=== PATIENT | female | born 1940 | race Caucasian/White ===

== ENCOUNTER 2018-01-25 18:02 | Outpatient (CLI) | payer MEDICARE, MEDICAID | END 2018-01-25 18:03 | disposition critical access hospital (66) | LOC: EMS 18:02 | PROVIDERS: ATTEND Surgery | DX: R41.0 Disorientation, unspecified (principal) | CPT/HCPCS: A0425; A0429 ==

== ENCOUNTER 2018-01-25 18:21 | Emergency (ER) | payer MEDICARE, MEDICAID ==
[2018-01-25] MEDS ORDERED: LIDOCAINE 1% 2 ML VIAL SUBQ ONE (18:50)
[2018-01-25] MEDS ORDERED: cefTRIAXone 1 GM VIAL IM STA (18:50)
[2018-01-25] MEDS ORDERED: HALOPERIDOL 5 MG/ML VIAL IM STA ×2 (18:50→19:52)
--- NOTE | 2018-01-25 19:36 | ED Physician Documentation ---
History of Present Illness - Stated complaint Stated Complaint: UTI - Chief complaint Chief Complaint: General - History obtained from History obtained from: Patient, Family, EMS - History of Present Illness Pain level max: 0 Pain level now: 0 - Additonal information Additional information: Patient is a 77-year-old female who was sent over from [facility] because she would not take her antibiotics today. She was recently diagnosed with a UTI. Has dementia has been more altered than usual. This is thought to be related to the UTI. They sent her here for antibiotics. Review of Systems Unable to obtain: Dementia Constitutional: denies: Fever GI: denies: Vomiting PD PAST MEDICAL HISTORY - Past Medical History Cardiovascular: Coronary artery disease, [place], Atrial fibrillation Respiratory: COPD Neuro: Dementia, CVA - Past Surgical History Cardiovascular: Pacemaker - Present Medications Home Medications: Ambulatory Orders Medication Instructions Recorded Confirmed ALPRAZolam [Alprazolam] 0.25 mg PO 01/25/18 Apixaban [Eliquis] 5 mg PO 01/25/18 Aspirin 81 mg PO 01/25/18 Digoxin 125 mcg PO 01/25/18 Donepezil HCl [Donepezil HCl Odt] 10 mg PO 01/25/18 Levothyroxine Sodium 75 mcg PO 01/25/18 Memantine HCl 10 mg PO 01/25/18 Metoprolol Tartrate 50 mg PO 01/25/18 Quetiapine Fumarate [Seroquel] 50 mg PO 01/25/18 Sertraline HCl 100 mg PO 01/25/18 Simvastatin 20 mg PO 01/25/18 Trazodone HCl 50 mg PO 01/25/18 - Allergies Allergies/Adverse Reactions: Allergies Allergy/AdvReac Type Severity Reaction Status Date / Time No Known Drug Allergies Allergy Verified 01/25/18 18:30 - Social History Does the pt smoke?: No Smoking Status: Never smoker PD ED PE NORMAL - Vitals Vital signs reviewed: Yes - General General: No acute distress, Well developed/nourished, Other (Alert, oriented to person only) - HEENT HEENT: PERRL, Moist mucous membranes - Neck Neck: Supple, no meningeal sign - Cardiac Cardiac: RRR - Respiratory Respiratory: No respiratory distress, Clear bilaterally - Abdomen Abdomen: Soft, Non tender, Non distended - Back Back: No CVA TTP, No spinal TTP - Derm Derm: Warm and dry, No rash - Neuro Neuro: Other (alert) - Psych Psych: Other (Patient is confused, attempting to get up multiple times. She is not violent or combative however.) Results - Vitals Vitals: Oxygen O2 Source Room air PD MEDICAL DECISION MAKING - ED course Complexity details: considered differential, d/w family ED course: Patient is a 77-year-old demented female who was diagnosed with a UTI earlier today but will not take her antibiotics. She was given IM Rocephin along with IM Haldol and Ativan. This allowed her to calm down and rest in the emergency department. Her family is comfortable taking her back to [facility]. Contact information was given for [facility] and [facility] in case they would like a mental health evaluation at [facility]. Family counseled regarding signs and symptoms for which I believe and urgent re-evaluation would be necessary. Family with good understanding of and agreement to plan and is comfortable going home at this time This document was made in part using voice recognition software. While efforts are made to proofread this document, sound alike and grammatical errors may occur. Departure - Departure Disposition: 01 Home, Self Care Clinical Impression: UTI (urinary tract infection) Qualifiers: Urinary tract infection type: acute cystitis Hematuria presence: without hematuria Qualified Code(s): N30.00 - Acute cystitis without hematuria Dementia Qualifiers: Dementia type: unspecified type Dementia behavioral disturbance: with behavioral disturbance Qualified Code(s): F03.91 - Unspecified dementia with behavioral disturbance Condition: Good Instructions: ED UTI Cystitis Female Follow-Up: Dwaine Tafoya PA-C [Primary Care Provider] - Tomorrow Comments: Please continue Jodi's antibiotics tomorrow. You can call the [facility] for a mental health evaluation if you feel this is needed and they will come to your facility. Call her doctor to have her medications adjusted for her dementia. Discharge Date/Time: 01/25/18 20:29
[2018-01-25] MEDS ORDERED: LORazepam 2 MG/ML VIAL IM STA (19:51)
[2018-01-25 20:27] VITALS: BP 86/56
== END 2018-01-25 20:29 | disposition home or self-care (01) ==
LOC: ED 18:21
DX: N30.00 Acute cystitis without hematuria (principal); I25.10 Atherosclerotic heart disease of native coronary artery without angina pectoris; I25.2 Old myocardial infarction; F03.90 Unspecified dementia, unspecified severity, without behavioral disturbance, psychotic disturbance, mood disturbance, and anxiety; Z86.73 Personal history of transient ischemic attack (TIA), and cerebral infarction without residual deficits; Z95.0 Presence of cardiac pacemaker
CPT/HCPCS: 96372; 99283; J2060

== ENCOUNTER 2018-01-30 20:16 | Outpatient (CLI) | payer MEDICARE, MEDICAID | END 2018-01-30 20:17 | disposition critical access hospital (66) | LOC: EMS 20:16 | PROVIDERS: ATTEND Surgery | DX: R41.0 Disorientation, unspecified (principal); R46.89 Other symptoms and signs involving appearance and behavior | CPT/HCPCS: A0425; A0429 ==

== ENCOUNTER 2018-01-30 20:34 | Emergency (ER) | payer MEDICARE, MEDICAID ==
[2018-01-30 21:20] LABS: BASOPHILS # (AUTO) 0.1 10^3/uL (0.0-0.1); BASOPHILS % (AUTO) 1.2 %; EOSINOPHILS # (AUTO) 0.2 10^3/uL (0.0-0.7); EOSINOPHILS % (AUTO) 2.2 %; HGB - HEMOGLOBIN 11.9 g/dL (12.0-16.0); LYMPHOCYTES # (AUTO) 1.8 10^3/uL (1.5-3.5); LYMPHOCYTES % (AUTO) 24.6 %; MEAN CORPUSCULAR HGB CONC 34.8 g/dL (32.0-36.0); MEAN CORPUSCULAR VOLUME 97.5 fL (81.0-99.0); MEAN PLATELET VOLUME 8.6 fL (7.9-10.8); MONOCYTES # (AUTO) 0.9 10^3/uL (0.0-1.0); MONOCYTES % (AUTO) 12.1 %; NEUTROPHILS # (AUTO) 4.4 10^3/uL (1.5-6.6); NEUTROPHILS % (AUTO) 59.9 %; PLT - PLATELET COUNT 174 10^3/uL (130-450); RED CELL DISTRIBUTION WIDTH 14.8 % (12.0-15.0); WHITE BLOOD COUNT 7.4 x10^3/uL (4.8-10.8)
[2018-01-30 21:28] LABS: MUDS CUTOFF CONCENTRATIONS CUTOFF CONC BELOW:
[2018-01-30 21:32] LABS: BILIRUBIN,URINE NEGATIVE (NEGATIVE); GLUCOSE, URINE (UA) NEGATIVE (NEGATIVE); KETONES,URINE (UA) NEGATIVE (NEGATIVE); LEUKOCYTE ESTERASE, URINE NEGATIVE (NEGATIVE); NITRITE,URINE NEGATIVE (NEGATIVE); OCCULT BLOOD,URINE NEGATIVE (NEGATIVE); PH,URINE 5.5 PH (5.0-7.5); PROTEIN,URINE NEGATIVE (NEGATIVE); UROBILINOGEN,URINE 0.2 (NORMAL) E.U./dL (NORMAL)
[2018-01-30 21:34] LABS: CLARITY,URINE CLEAR (CLEAR)
[2018-01-30 21:35] LABS: ALBUMIN 3.7 g/dL (3.2-5.5); ALBUMIN/GLOBULIN RATIO 1.4 (1.0-2.2); ALKALINE PHOSPHATASE 79 IU/L (42-121); ALT ALANINE AMINOTRANSFERASE 25 IU/L (10-60); AST ASPARTATE AMINOTRANSFERASE 38 IU/L (10-42); BILIRUBIN,TOTAL 0.6 mg/dL (0.2-1.0); CALCIUM 8.5 mg/dL (8.5-10.3); CARBON DIOXIDE - CO2 24 mmol/L (21-32); CHLORIDE 108 mmol/L (101-111); CREATININE 0.9 mg/dL (0.4-1.0); GFR - MDRD 61 (>89); GLUCOSE 84 mg/dL (70-100); LIPASE 16 U/L (22-51); SALICYLATE < 6.0 mg/dL; SODIUM 139 mmol/L (135-145); TOTAL PROTEIN 6.4 g/dL (6.7-8.2)
[2018-01-30 21:36] LABS: ACETAMINOPHEN < 10 ug/mL (10-30)
--- NOTE | 2018-01-30 21:42 | ED Physician Documentation ---
PD HPI ALTERED MENTAL STATUS - Stated complaint Stated Complaint: AMS - Chief complaint Chief Complaint: MHE - History obtained from History obtained from: Patient, Caregiver - History of Present Illness Timing - onset: Today (again today with behavioral disturbance. Here several days ago with similar and had noted at that time that her Seroquel dose was only 1/2 of what it had been before coming here. So that was increased and patient doing better few days. Had labs and eval for infection and found to have possible UTI.) Timing - duration: Days (more restless today. Has been increasing some for the past week or so. Is at new [facility]ementia care place for past couple of weeks, [place] be near her daughter. Daughter had tried to care for her for few weeks at home but was not able to, so now in [facility].) Associated symptoms: No: Fever Basline status: Disoriented, [facility] facility (dementia care) Recently seen: Emergency Dept (5 days ago and had similar behavior. Also with possible UTI and was on abx that just finished today.) Review of Systems Unable to obtain: Dementia, Other (info from daughter) Constitutional: denies: Fever Nose: denies: Congestion Throat: denies: Sore throat Respiratory: denies: Cough GI: denies: Vomiting, Diarrhea Skin: reports: Rash (for a day or two, with redness and blotchy rash around ankles and legs mostly.) Musculoskeletal: denies: Extremity swelling Neurologic: denies: Focal weakness Immunocompromised: denies: Immunocompromised PD PAST MEDICAL HISTORY - Past Medical History Past Medical History: Yes Cardiovascular: Coronary artery disease, [place], Atrial fibrillation Respiratory: COPD Neuro: Dementia, CVA - Past Surgical History Past Surgical History: Yes Cardiovascular: Pacemaker - Present Medications Home Medications: Ambulatory Orders Medication Instructions Recorded Confirmed ALPRAZolam [Alprazolam] 0.25 mg PO 01/25/18 Apixaban [Eliquis] 5 mg PO 01/25/18 Aspirin 81 mg PO 01/25/18 Digoxin 125 mcg PO 01/25/18 Donepezil HCl [Donepezil HCl Odt] 10 mg PO 01/25/18 Levothyroxine Sodium 75 mcg PO 01/25/18 Memantine HCl 10 mg PO 01/25/18 Metoprolol Tartrate 50 mg PO 01/25/18 Quetiapine Fumarate [Seroquel] 50 mg PO 01/25/18 Sertraline HCl 100 mg PO 01/25/18 Simvastatin 20 mg PO 01/25/18 Trazodone HCl 50 mg PO 01/25/18 Haloperidol [Haldol] 2 mg PO BID #30 tablet 01/30/18 - Allergies Allergies/Adverse Reactions: Allergies Allergy/AdvReac Type Severity Reaction Status Date / Time No Known Drug Allergies Allergy Verified 01/30/18 20:40 - Social History Does the pt smoke?: No Smoking Status: Never smoker Does the pt drink ETOH?: No Does the pt have substance abuse?: No - POLST Patient has POLST: No PD ED PE NORMAL - Vitals Vital signs reviewed: Yes - General General: No acute distress (but is restless and wanting to get out of bed. Able to be directed by her daughter. ), Well developed/nourished - HEENT HEENT: Pharynx benign - Neck Neck: Supple, no meningeal sign, No adenopathy - Cardiac Cardiac: RRR, No murmur - Respiratory Respiratory: Clear bilaterally - Abdomen Abdomen: Soft, Non tender - Back Back: No CVA TTP - Derm Derm: Normal color, Warm and dry, Other (mild botchy red rash on legs and ankles c/w mild hives. 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 No : Alert and oriented X 3 (oriented to person, but is alert. ) Results - Vitals Vitals: Oxygen O2 Source Room air - Labs Labs: Laboratory Tests 01/30/18 01/30/18 01/30/18 20:58 21:15 21:15 WBC 7.4 RBC 3.50 L Hgb 11.9 L Hct 34.2 L MCV 97.5 MCH 34.0 H MCHC 34.8 RDW 14.8 Plt Count 174 MPV 8.6 Neut # 4.4 Lymph # 1.8 [place] # 0.9 Eos # 0.2 Baso # 0.1 Absolute Nucleated RBC 0.00 Nucleated RBC % 0.0 Sodium 139 Potassium 3.8 Chloride 108 Carbon Dioxide 24 Anion Gap 7.0 BUN Creatinine 0.9 Estimated GFR (MDRD) 61 L Glucose 84 POC Whole Bld Glucose 82 Calcium 8.5 Total Bilirubin 0.6 AST 38 ALT 25 Alkaline Phosphatase 79 Troponin I Total Protein 6.4 L Albumin 3.7 Globulin 2.7 Albumin/Globulin Ratio 1.4 Lipase 16 L Urine Color Urine Clarity Urine pH Ur Specific [place] Urine Protein Urine Glucose (UA) Urine Ketones Urine Occult Blood Urine Nitrite Urine Bilirubin Urine Urobilinogen Ur Leukocyte Esterase Ur Microscopic Review Urine Culture Comments Last Dose Date Last Dose Time Digoxin Salicylates < 6.0 Urine Opiates Screen Ur Oxycodone Screen Urine Methadone Screen Ur Propoxyphene Screen Acetaminophen < 10 L Ur Barbiturates Screen Ur Tricyclics Screen Ur Phencyclidine Scrn Ur Amphetamine Screen U Methamphetamines Scrn U Benzodiazepines Scrn Urine Cocaine Screen U Cannabinoids Screen 01/30/18 01/30/18 01/30/18 21:24 21:42 21:45 WBC RBC Hgb Hct MCV MCH MCHC RDW Plt Count MPV Neut # Lymph # [place] # Eos # Baso # Absolute Nucleated RBC Nucleated RBC % Sodium Potassium Chloride Carbon Dioxide Anion Gap BUN Creatinine Estimated GFR (MDRD) Glucose POC Whole Bld Glucose Calcium Total Bilirubin AST ALT Alkaline Phosphatase Troponin I < 0.04 Total Protein Albumin Globulin Albumin/Globulin Ratio Lipase Urine Color YELLOW Urine Clarity CLEAR Urine pH 5.5 Ur Specific [place] >=1.030 H Urine Protein NEGATIVE Urine Glucose (UA) NEGATIVE Urine Ketones NEGATIVE Urine Occult Blood NEGATIVE Urine Nitrite NEGATIVE Urine Bilirubin NEGATIVE Urine Urobilinogen 0.2 (NORMAL) Ur Leukocyte Esterase NEGATIVE Ur Microscopic Review NOT INDICATED Urine Culture Comments NOT INDICATED Last Dose Date UNKNOWN Last Dose Time UNKNOWN Digoxin 0.8 Salicylates Urine Opiates Screen NEGATIVE Ur Oxycodone Screen NEGATIVE Urine Methadone Screen NEGATIVE Ur Propoxyphene Screen NEGATIVE Acetaminophen Ur Barbiturates Screen NEGATIVE Ur Tricyclics Screen POSITIVE H Ur Phencyclidine Scrn NEGATIVE Ur Amphetamine Screen NEGATIVE U Methamphetamines Scrn NEGATIVE U Benzodiazepines Scrn POSITIVE H Urine Cocaine Screen NEGATIVE U Cannabinoids Screen NEGATIVE PD MEDICAL DECISION MAKING - ED course Complexity details: reviewed results (since she is done with her abx now, then no need to adjust for rash. ), re-evaluated patient (she is calmer with dose of Haldol and ativan, which had helped the recent visit as well. Daughter says that [facility] would take patient back with med adjustments. Can add oral Haldol bid for now pending PMD review and perhaps other med changes. ), considered differential (dementia with behavioral disturbance, can add med. Has mild rash, likely from abx and she is done course anyway, so no adjustment needed. ), d/w patient (not very informative herself), d/w family (daughter) Departure - Departure Disposition: 01 Home, Self Care Clinical Impression: Allergic drug rash Dementia with behavioral disturbance Qualifiers: Dementia type: unspecified type Qualified Code(s): F03.91 - Unspecified dementia with behavioral disturbance Condition: Stable Record reviewed to determine appropriate education?: Yes Follow-Up: Dwaine Tafoya PA-C [Primary Care Provider] - Prescriptions: Haloperidol [Haldol] 2 mg PO BID #30 tablet Comments: Continue your current medications. Add Haldol 2 mg twice daily. Follow-up with your primary care this coming week to assess current medication regimen and decide on any further adjustments. Discharge Date/Time: 01/31/18 00:19
[2018-01-30 21:44] LABS: AMPHETAMINE SCREEN,URINE NEGATIVE (NEGATIVE); BENZODIAZEPINES SCREEN, URINE POSITIVE (NEGATIVE); COCAINE SCREEN URINE NEGATIVE (NEGATIVE); METHADONE SCREEN, URINE NEGATIVE (NEGATIVE); METHAMPHETAMINES SCREEN, URINE NEGATIVE (NEGATIVE); OPIATE SCREEN, URINE NEGATIVE (NEGATIVE); OXYCODONE SCREEN, URINE NEGATIVE (NEGATIVE); PROPOXYPHENE SCREEN, URINE NEGATIVE (NEGATIVE); TRICYCLIC ANTIDEPRESSANT,URINE POSITIVE (NEGATIVE)
[2018-01-30 22:05] LABS: DIGOXIN 0.8 ng/mL
[2018-01-30] MEDS ORDERED: HALOPERIDOL 5 MG/ML VIAL IM STA (22:08)
--- NOTE | 2018-01-30 22:57 | CT Report ---
EXAM: CT HEAD EXAM DATE: 01/30/2018 10:41 PM. CLINICAL HISTORY: Confused/agitated. COMPARISON: None. TECHNIQUE: Multiaxial CT images were obtained from the foramen magnum to the vertex. Reformats: Coron al. IV contrast: None. In accordance with CT protocol optimization, one or more of the following dose reduction techniques w ere utilized for this exam: automated exposure control, adjustment of mA and/or KV based on patient s ize, or use of iterative reconstructive technique. FINDINGS: Parenchyma: No intraparenchymal hemorrhage. No evidence of mass, midline shift, or CT findings of acu te infarction. Webber-white differentiation is distinct. There is a 2-3 cm chronic infarct in the patricia x and underlying white matter of the right frontal lobe. There is mild to moderate chronic microvascu lar change in the deep white matter bilaterally. Extraaxial Spaces: There is age related generalized cerebral volume loss. No subdural or epidural col lections identified. Ventricles: Normal in size and position. Sinuses and Orbits: Imaged paranasal sinuses, orbits, and mastoids show no significant abnormality. Bones: No evidence of fracture or calvarial defect. Other: None. IMPRESSION: 1. No acute intracranial abnormality. 2. 2-3 cm chronic right frontal lobe infarct. 3. Age-related generalized cerebral volume loss and chronic microvascular change. [facility] Referring Provider Line: [phone] SITE ID: [id number]
--- NOTE | 2018-01-30 22:57 | CT Preliminary Report ---
Exam: CT HEAD W/O IMPRESSION: 1. No acute intracranial abnormality. 2. 2-3 cm chronic right frontal lobe infarct. 3. Age-related generalized cerebral volume loss and chronic microvascular change. [facility] SITE ID: [id number]
[2018-01-30] MEDS ORDERED: LORazepam 2 MG/ML VIAL IM STA (23:00)
[2018-01-30] MEDS ORDERED: QUEtiapine 100 MG TABLET PO STA (23:01)
[2018-01-31 00:12] VITALS: BP 112/68
== END 2018-01-31 00:19 | disposition home or self-care (01) ==
LOC: EDUNIT# → ED 20:34
DX: T43.595A Adverse effect of other antipsychotics and neuroleptics, initial encounter (principal); F03.91 Unspecified dementia, unspecified severity, with behavioral disturbance; I25.10 Atherosclerotic heart disease of native coronary artery without angina pectoris; I25.2 Old myocardial infarction; Z86.73 Personal history of transient ischemic attack (TIA), and cerebral infarction without residual deficits; Z95.0 Presence of cardiac pacemaker; Z79.82 Long term (current) use of aspirin
CPT/HCPCS: 70450; 80053; 80162; 80306; 80307; 81003; 83690; 84484; 85025; 96372; 99284; A9270; G0480; J2060; 36415; 80320; 80329; 81001; 84702; 85651; 87086

== ENCOUNTER 2018-03-04 13:38 | Outpatient (CLI) | payer MEDICARE, MEDICAID ==
[2018-03-04 19:20] LABS: BASOPHILS % (AUTO) 0.6 %; EOSINOPHILS # (AUTO) 0.2 10^3/uL (0.0-0.7); HGB - HEMOGLOBIN 13.1 g/dL (12.0-16.0); LYMPHOCYTES # (AUTO) 1.7 10^3/uL (1.5-3.5); LYMPHOCYTES % (AUTO) 26.1 %; MEAN CORPUSCULAR HGB CONC 33.2 g/dL (32.0-36.0); MEAN CORPUSCULAR VOLUME 99.3 fL (81.0-99.0); MEAN PLATELET VOLUME 9.6 fL (7.9-10.8); MONOCYTES # (AUTO) 0.5 10^3/uL (0.0-1.0); MONOCYTES % (AUTO) 8.3 %; NEUTROPHILS # (AUTO) 3.9 10^3/uL (1.5-6.6); PLT - PLATELET COUNT 151 10^3/uL (130-450); RED BLOOD COUNT 3.97 10^6/uL (4.20-5.40); RED CELL DISTRIBUTION WIDTH 14.4 % (12.0-15.0); WHITE BLOOD COUNT 6.3 x10^3/uL (4.8-10.8)
[2018-03-04 20:03] LABS: ALBUMIN/GLOBULIN RATIO 1.3 (1.0-2.2); ALKALINE PHOSPHATASE 79 IU/L (42-121); ALT ALANINE AMINOTRANSFERASE 12 IU/L (10-60); AST ASPARTATE AMINOTRANSFERASE 17 IU/L (10-42); BILIRUBIN,TOTAL 0.8 mg/dL (0.2-1.0); BUN - BLOOD UREA NITROGEN 15 mg/dL (6-20); CARBON DIOXIDE - CO2 29 mmol/L (21-32); CHLORIDE 102 mmol/L (101-111); CREATININE 0.8 mg/dL (0.4-1.0); GFR - MDRD 69 (>89); GLUCOSE 85 mg/dL (70-100); SODIUM 138 mmol/L (135-145)
== END 2018-03-04 13:39 | disposition home or self-care (01) ==
LOC: LAB.N 13:38
PROVIDERS: ATTEND Physician Assistant Medical
DX: I48.0 Paroxysmal atrial fibrillation (principal); I21.3 ST elevation (STEMI) myocardial infarction of unspecified site; I63.9 Cerebral infarction, unspecified; F03.90 Unspecified dementia, unspecified severity, without behavioral disturbance, psychotic disturbance, mood disturbance, and anxiety
CPT/HCPCS: 36415; 80053; 84443; 85025

== ENCOUNTER 2018-08-08 14:16 | Outpatient (CLI) | payer MEDICARE, MEDICAID | END 2018-08-08 14:17 | disposition critical access hospital (66) | LOC: EMS 14:16 | PROVIDERS: ATTEND Surgery | DX: R52 Pain, unspecified (principal); W18.30XA Fall on same level, unspecified, initial encounter; Y93.01 Activity, walking, marching and hiking; Y92.099 Unspecified place in other non-institutional residence as the place of occurrence of the external cause | CPT/HCPCS: A0425; A0429 ==

== ENCOUNTER 2018-08-08 14:34 | Emergency (ER) | payer MEDICARE, MEDICAID ==
--- NOTE | 2018-08-08 15:24 | XRAY Report ---
Reason: fall arm pain Procedure Date: 08/08/2018 Accession Number: [id number] / [id number] Procedure: XR - Humerus LT CPT Code: FULL RESULT: EXAM: LEFT HUMERUS RADIOGRAPHY EXAM DATE: 08/08/2018 02:56 PM. CLINICAL HISTORY: Fall, arm pain. COMPARISON: None. TECHNIQUE: 2 views. FINDINGS: Bones: Diffusely demineralized. No displaced fracture visualized. No bone lesion. Joints: No subluxation or dislocation. There is mild flattening of the humeral head with a prominent inferior marginal osteophyte, suggestive of moderate degenerative change at the glenohumeral joint. There is mild degenerative osteoarthritis at the acromioclavicular joint. Soft Tissues: No focal soft tissue swelling. IMPRESSION: 1. No displaced fracture visualized. Bones are diffusely demineralized. 2. 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 3. Mild degenerative osteoarthritis of the acromioclavicular joint. [facility]
--- NOTE | 2018-08-08 15:51 | ED Physician Documentation ---
PD HPI Fall - Stated complaint Stated Complaint: FALL - Chief complaint Chief Complaint: General - History obtained from History obtained from: Patient, Family - History of Present Illness Mechanism of injury: Unknown Fall distance: Standing position Where injury occurred: Home Timing - onset: Today Injury(ies) location: Neck, Left Uppper Extremity Quality of pain: Pain Associated symptoms: Amnesia, Neck pain. No: LOC, AMS, Seizures, Ear drainage, Nasal drainage, Weakness, Paresthesias, Dyspnea, Hematemesis, Abdominal distension Symptoms improve with: Rest Worsens with: Movement, Palpation Contributing factors: Anticoagulated Similar symptoms before: Has not had sx before Recently seen: Not recently seen - Additional information Additional information: 77-year-old female on Eliquis with advanced dementia was outside this afternoon on the deck at her assisted living facility when she fell forward in an unwitnessed fall. She was found face down and complains of pain all over. When she was picked up by medics they were unable to elicit specific pain. The patient is unable to describe specifically where her pain is. Review of Systems Unable to obtain: Dementia Constitutional: denies: Fever Respiratory: denies: Cough GI: denies: Vomiting Skin: denies: Rash Musculoskeletal: reports: Neck pain, Extremity pain Neurologic: denies: Generalized weakness, Focal weakness, Numbness PD PAST MEDICAL HISTORY - Past Medical History Past Medical History: Yes Cardiovascular: Coronary artery disease, [place], Atrial fibrillation Respiratory: COPD - Past Surgical History Past Surgical History: Yes Cardiovascular: Pacemaker - Present Medications Home Medications: Ambulatory Orders Medication Instructions Recorded Confirmed ALPRAZolam [Alprazolam] 0.25 mg PO 01/25/18 Apixaban [Eliquis] 5 mg PO 01/25/18 Aspirin 81 mg PO 01/25/18 Digoxin 125 mcg PO 01/25/18 Donepezil HCl [Donepezil HCl Odt] 10 mg PO 01/25/18 Levothyroxine Sodium 75 mcg PO 01/25/18 Memantine HCl 10 mg PO 01/25/18 Metoprolol Tartrate 50 mg PO 01/25/18 Quetiapine Fumarate [Seroquel] 50 mg PO 01/25/18 Sertraline HCl 100 mg PO 01/25/18 Simvastatin 20 mg PO 01/25/18 Trazodone HCl 50 mg PO 01/25/18 Haloperidol [Haldol] 2 mg PO BID #30 tablet 01/30/18 - Allergies Allergies/Adverse Reactions: Allergies Allergy/AdvReac Type Severity Reaction Status Date / Time No Known Drug Allergies Allergy Verified 01/30/18 20:40 - Social History Does the pt smoke?: No Smoking Status: Never smoker Does the pt drink ETOH?: No Does the pt have substance abuse?: No - Immunizations Immunizations are current?: Yes - POLST Patient has POLST: No PD ED PE NORMAL - Vitals Vital signs reviewed: Yes (normal ) - General General: No acute distress, Well developed/nourished, Other (alert but not oriented) - HEENT HEENT: Atraumatic, PERRL, EOMI - Neck Neck: Supple, no meningeal sign, Other (There is pain to ROM testing and to palpation of the mid cervical spine. ) - Cardiac Cardiac: RRR, No murmur - Respiratory Respiratory: No respiratory distress, Clear bilaterally - Abdomen Abdomen: Soft, Non tender - Back Back: No CVA TTP, No spinal TTP - Derm Derm: Normal color, Warm and dry, No rash - Extremities Extremities: No deformity, No edema, Other (There is some pain to movement of the left arm. There appears to be some tenderness to the mid humoral shaft. 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 No displaced fracture visualized. Bones are diffusely demineralized. 2. 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 3. Mild degenerative osteoarthritis of the acromioclavicular joint.), EMP read indepedently, See rad report CT cervical spine Radiology: Prelim report reviewed (Impression: 1. Multilevel moderately advance chronic degenerative disc and facet disease from C4-T1. No acute fracture.), EMP read indepedently, See rad report CT head without Radiology: Prelim report reviewed, EMP read indepedently, See rad report PD MEDICAL DECISION MAKING - ED course Complexity details: reviewed results, re-evaluated patient, considered differential, d/w patient, d/w family ED course: 77 y/o female with advanced dementia has had a fall unwitnessed and is on elequis. There is no evidence of intracranial hemorrhage and there is advanced degenerative disease of the neck and no evidence of fracture in the arm. Departure - Departure Disposition: 01 Home, Self Care Clinical Impression: Fall Qualifiers: Encounter type: initial encounter Qualified Code(s): W19.XXXA - Unspecified fall, initial encounter Cervical strain, acute Qualifiers: Encounter type: initial encounter Qualified Code(s): S16.1XXA - Strain of muscle, fascia and tendon at neck level, initial encounter Condition: Stable Instructions: ED Sprain Strain Neck Follow-Up: Dwaine Tafoya PA-C [Credentialed Staff Provider] -
--- NOTE | 2018-08-08 16:30 | CT Report ---
Reason: fall head injury eliquis Procedure Date: 08/08/2018 Accession Number: [id number] / [id number] Procedure: CT - Head W/O CPT Code: FULL RESULT: EXAM: CT HEAD EXAM DATE: 08/08/2018 04:17 PM. CLINICAL HISTORY: Fall head injury jovannyquis. COMPARISON: HEAD W/O 01/30/2018 10:32 PM. TECHNIQUE: Multiaxial CT images were obtained from the foramen magnum to the vertex. Reformats: Sagittal and coronal. IV contrast: None. In accordance with CT protocol optimization, one or more of the following dose reduction techniques were utilized for this exam: automated exposure control, adjustment of mA and/or KV based on patient size, or use of iterative reconstructive technique. FINDINGS: Parenchyma: Again seen is encephalomalacia within the right frontal lobe which appears without significant interval change. Negative for an acute intracranial hemorrhage. There is no midline shift or mass-effect. Extraaxial Spaces: Normal for age. No subdural or epidural collections identified. Ventricles: Normal in size and position. Sinuses and Orbits: There is partial fluid opacification of the right mastoid sinus. Other sinuses appear clear. Bones: No evidence of fracture or calvarial defect. Other: None. IMPRESSION: 1. Negative for intracranial acute hemorrhage. 2. Old right frontal lobe infarct with encephalomalacia. 3. Partial opacification of the right mastoid sinus without interval change. [facility]
--- NOTE | 2018-08-08 16:36 | CT Report ---
Reason: fall neck pain Procedure Date: 08/08/2018 Accession Number: [id number] / [id number] Procedure: CT - Cervical Spine W/O CPT Code: FULL RESULT: EXAM: CT CERVICAL SPINE WITHOUT CONTRAST DATE: 08/08/2018 04:17 PM. HISTORY: Fall neck pain. COMPARISONS: HEAD W/O 01/30/2018 10:32 PM. TECHNIQUE: Thin-section axial images were acquired of the cervical spine without contrast. Post-processing: Coronal and sagittal reformats. Other: None. In accordance with CT protocol optimization, one or more of the following dose reduction techniques were utilized for this exam: automated exposure control, adjustment of mA and/or KV based on patient size, or use of iterative reconstructive technique. FINDINGS: Alignment: There is mild anterolisthesis at C7-T1. Alignment at other levels appear satisfactory. No scoliosis. Bones: There is a moderate degree of sclerosis of C4-C7 vertebral bodies. There is degenerative disease of the anterior C1 and C2 articulation. No acute fracture. Interspace Levels/Facets: There is moderate disk height loss at C4-C5, C5-C6, C6-C7 and C7-T1. There is left greater than right facet spurring and degenerative disease. Musculature: Normal. No fatty atrophy. Other: The paravertebral and prevertebral soft tissues are unremarkable. No apical pneumothorax. IMPRESSION: 1. Multilevel moderately advanced chronic degenerative disk and facet disease from C4-T1. 2. No acute fracture. [facility]
[2018-08-08 16:59] VITALS: BP 98/55
== END 2018-08-08 17:00 | disposition home or self-care (01) ==
LOC: EDUNIT# → ED 14:34
DX: S16.1XXA Strain of muscle, fascia and tendon at neck level, initial encounter (principal); W19.XXXA Unspecified fall, initial encounter; Y92.098 Other place in other non-institutional residence as the place of occurrence of the external cause; F03.90 Unspecified dementia, unspecified severity, without behavioral disturbance, psychotic disturbance, mood disturbance, and anxiety; I48.91 Unspecified atrial fibrillation; J44.9 Chronic obstructive pulmonary disease, unspecified; I25.10 Atherosclerotic heart disease of native coronary artery without angina pectoris; I25.2 Old myocardial infarction; Z95.0 Presence of cardiac pacemaker; Z79.01 Long term (current) use of anticoagulants
CPT/HCPCS: 70450; 72125; 99283

== ENCOUNTER 2018-08-30 21:16 | Outpatient (CLI) | payer MEDICARE, MEDICAID | END 2018-08-30 21:17 | disposition critical access hospital (66) | LOC: EMS 21:16 | PROVIDERS: ATTEND Surgery | DX: R41.82 Altered mental status, unspecified (principal); R03.1 Nonspecific low blood-pressure reading | CPT/HCPCS: A0425; A0429 ==

== ENCOUNTER 2018-08-30 21:36 | Emergency (ER) | payer MEDICARE, MEDICAID ==
--- NOTE | 2018-08-30 22:23 | ED Physician Documentation ---
PD HPI ALTERED MENTAL STATUS - Stated complaint Stated Complaint: AMS - Chief complaint Chief Complaint: Neuro - History obtained from History obtained from: Patient, Family - History of Present Illness Timing - onset: How many days ago (several) Timing - duration: Days (several) Timing - details: Gradual onset Quality / character: Other (weaker than usual) Associated symptoms: General weakness. No: Fever, Headache, Stiff neck, Dyspnea, Cough, NVD, Urinary sx Contributing factors: Known dementia. No: Intoxicated Similar symptoms before: Diagnosis (UTI) Recently seen: Not recently seen Review of Systems Constitutional: denies: Fever GI: denies: Vomiting, Diarrhea Skin: denies: Rash Neurologic: denies: Head injury PD PAST MEDICAL HISTORY - Past Medical History Cardiovascular: Coronary artery disease, [place], Atrial fibrillation Respiratory: COPD Neuro: Dementia, CVA - Past Surgical History Past Surgical History: Yes Cardiovascular: Pacemaker - Present Medications Home Medications: Ambulatory Orders Medication Instructions Recorded Confirmed ALPRAZolam [Alprazolam] 0.25 mg PO 01/25/18 Apixaban [Eliquis] 5 mg PO 01/25/18 Aspirin 81 mg PO 01/25/18 Digoxin 125 mcg PO 01/25/18 Donepezil HCl [Donepezil HCl Odt] 10 mg PO 01/25/18 Levothyroxine Sodium 75 mcg PO 01/25/18 Memantine HCl 10 mg PO 01/25/18 Metoprolol Tartrate 50 mg PO 01/25/18 Quetiapine Fumarate [Seroquel] 50 mg PO 01/25/18 Sertraline HCl 100 mg PO 01/25/18 Simvastatin 20 mg PO 01/25/18 Trazodone HCl 50 mg PO 01/25/18 Haloperidol [Haldol] 2 mg PO BID #30 tablet 01/30/18 Cephalexin [Keflex] 500 mg PO Q6H #28 capsule 08/30/18 - Allergies Allergies/Adverse Reactions: Allergies Allergy/AdvReac Type Severity Reaction Status Date / Time No Known Drug Allergies Allergy Verified 08/30/18 21:42 - Social History Does the pt smoke?: No Smoking Status: Never smoker Does the pt drink ETOH?: No Does the pt have substance abuse?: No - Immunizations Immunizations are current?: Yes - POLST Patient has POLST: No PD ED PE NORMAL - Vitals Vital signs reviewed: Yes - General General: No acute distress, Other (alert, oriented to person) - HEENT HEENT: Atraumatic, PERRL, Moist mucous membranes - Neck Neck: Supple, no meningeal sign - Cardiac Cardiac: RRR, Strong equal pulses - Respiratory Respiratory: No respiratory distress, Clear bilaterally - Abdomen Abdomen: Soft, Non tender, Non distended - Back Back: No CVA TTP - Derm Derm: Warm and dry - Extremities Extremities: No edema - Neuro Neuro: No motor deficit, No sensory deficit Results - Vitals Vitals: Vital Signs - 24 hr 08/30/18 08/30/18 08/30/18 21:38 22:55 23:56 Temperature 36.4 C L Heart Rate 71 64 68 Respiratory 14 18 16 Rate Blood Pressure 104/65 102/72 128/79 O2 Saturation 97 94 97 Oxygen O2 Source Room air - Labs Labs: Laboratory Tests 08/30/18 08/30/18 08/30/18 22:30 22:30 23:10 WBC 7.7 RBC 4.31 Hgb 14.1 Hct 42.7 MCV 99.1 H MCH 32.7 H MCHC 33.0 RDW 14.5 Plt Count 201 MPV 9.2 Neut # (Auto) 5.1 Lymph # (Auto) 1.6 [place] # (Auto) 0.8 Eos # (Auto) 0.1 Baso # (Auto) 0.1 Absolute Nucleated RBC 0.00 Nucleated RBC % 0.0 Sodium 138 Potassium 4.2 Chloride 103 Carbon Dioxide 28 Anion Gap 7.0 BUN 22 H Creatinine 1.2 H Estimated GFR (MDRD) 43 L Glucose 106 H Calcium 9.2 Total Bilirubin 1.0 AST 22 ALT 13 Alkaline Phosphatase 110 Total Protein 7.1 Albumin 4.1 Globulin 3.0 Albumin/Globulin Ratio 1.4 Lipase 34 Urine Color YELLOW Urine Clarity CLEAR Urine pH 5.5 Ur Specific [place] >=1.030 H Urine Protein 100 H Urine Glucose (UA) NEGATIVE Urine Ketones 15 H Urine Occult Blood MODERATE H Urine Nitrite NEGATIVE Urine Bilirubin NEGATIVE Urine Urobilinogen 0.2 (NORMAL) Ur Leukocyte Esterase MODERATE H Urine RBC 6-10 H Urine WBC >25 H Ur Squamous Epith Cells NONE SEEN Urine Bacteria Few Ur Microscopic Review INDICATED Urine Culture Comments INDICATED PD MEDICAL DECISION MAKING - ED course Complexity details: reviewed results, re-evaluated patient, considered differential, d/w patient, d/w family ED course: 77-year-old female with severe dementia presents with weakness. Found to have a UTI. Given Rocephin and will place on Keflex for home. She is well-appearing, nontoxic. Afebrile. No evidence of sepsis. Patient and family counseled regarding signs and symptoms for which I believe and urgent re-evaluation would be necessary. Patient with good understanding of and agreement to plan and is comfortable going home at this time This document was made in part using voice recognition software. While efforts are made to proofread this document, sound alike and grammatical errors may occu r. Departure - Departure Disposition: Home, Self Care Clinical Impression: UTI (urinary tract infection) Qualifiers: Urinary tract infection type: acute cystitis Hematuria presence: without hematuria Qualified Code(s): N30.00 - Acute cystitis without hematuria Condition: Good Instructions: ED UTI Cystitis Female Follow-Up: Dwaine Tafoya PA-C [Primary Care Provider] - Within 1 week Prescriptions: Cephalexin [Keflex] 500 mg PO Q6H #28 capsule Comments: Take all antibiotics until gone. Return if she worsens. This should clear her infection. Discharge Date/Time: 08/31/18 00:22
[2018-08-30] MEDS: SODIUM CHLORIDE 0.9% 1,000 ML IV STA (22:42)
[2018-08-30 22:43] LABS: BASOPHILS # (AUTO) 0.1 10^3/uL (0.0-0.1); BASOPHILS % (AUTO) 1.2 %; EOSINOPHILS # (AUTO) 0.1 10^3/uL (0.0-0.7); EOSINOPHILS % (AUTO) 1.9 %; HGB - HEMOGLOBIN 14.1 g/dL (12.0-16.0); LYMPHOCYTES # (AUTO) 1.6 10^3/uL (1.5-3.5); LYMPHOCYTES % (AUTO) 21.2 %; MEAN CORPUSCULAR HEMOGLOBIN 32.7 pg (27.0-31.0); MEAN CORPUSCULAR VOLUME 99.1 fL (81.0-99.0); MEAN PLATELET VOLUME 9.2 fL (7.9-10.8); MONOCYTES # (AUTO) 0.8 10^3/uL (0.0-1.0); MONOCYTES % (AUTO) 10.2 %; NEUTROPHILS # (AUTO) 5.1 10^3/uL (1.5-6.6); NEUTROPHILS % (AUTO) 65.5 %; PLT - PLATELET COUNT 201 10^3/uL (130-450); RED BLOOD COUNT 4.31 10^6/uL (4.20-5.40); RED CELL DISTRIBUTION WIDTH 14.5 % (12.0-15.0); WHITE BLOOD COUNT 7.7 x10^3/uL (4.8-10.8)
[2018-08-30 22:55] LABS: ALBUMIN 4.1 g/dL (3.2-5.5); ALBUMIN/GLOBULIN RATIO 1.4 (1.0-2.2); CALCIUM 9.2 mg/dL (8.5-10.3); CREATININE 1.2 mg/dL (0.4-1.0); TOTAL PROTEIN 7.1 g/dL (6.7-8.2)
[2018-08-30 23:22] LABS: GLUCOSE, URINE (UA) NEGATIVE (NEGATIVE); KETONES,URINE (UA) 15 mg/dL (NEGATIVE); LEUKOCYTE ESTERASE, URINE MODERATE (NEGATIVE); NITRITE,URINE NEGATIVE (NEGATIVE); OCCULT BLOOD,URINE MODERATE (NEGATIVE); PH,URINE 5.5 PH (5.0-7.5); PROTEIN,URINE 100 mg/dL (NEGATIVE); UROBILINOGEN,URINE 0.2 (NORMAL) E.U./dL (NORMAL)
[2018-08-30 23:24] LABS: BILIRUBIN,URINE NEGATIVE (NEGATIVE); CLARITY,URINE CLEAR (CLEAR); ICTOTEST,URINE NEGATIVE
[2018-08-30 23:28] LABS: BACTERIA,URINE Few /HPF (None Seen); SQUAMOUS EPITHELIAL CELL,UR NONE SEEN (<= Few)
[2018-08-30] MEDS: cefTRIAXone 1 GM VIAL IVP STA (23:46)
[2018-08-30 23:58] VITALS: BP 128/79
== END 2018-08-31 00:22 | disposition home or self-care (01) ==
LOC: EDUNIT# → ED 21:36
DX: N30.00 Acute cystitis without hematuria (principal); F03.90 Unspecified dementia, unspecified severity, without behavioral disturbance, psychotic disturbance, mood disturbance, and anxiety; I48.91 Unspecified atrial fibrillation; Z79.01 Long term (current) use of anticoagulants; Z95.0 Presence of cardiac pacemaker
CPT/HCPCS: 36415; 80053; 81001; 81003; 83690; 85025; 87077; 87086; 87181; 96361; 96374; 99283

== ENCOUNTER 2018-09-06 02:20 | Outpatient (CLI) | payer MEDICARE, MEDICAID | END 2018-09-06 02:21 | disposition critical access hospital (66) | LOC: EMS 02:20 | PROVIDERS: ATTEND Surgery | DX: S09.90XA Unspecified injury of head, initial encounter (principal); R42 Dizziness and giddiness; W06.XXXA Fall from bed, initial encounter; Y92.092 Bedroom in other non-institutional residence as the place of occurrence of the external cause | CPT/HCPCS: A0425; A0429 ==

== ENCOUNTER 2018-09-06 02:38 | Emergency (ER) | payer MEDICARE, MEDICAID ==
--- NOTE | 2018-09-06 03:02 | ED Physician Documentation ---
PD HPI HEAD INJURY - Stated complaint Stated Complaint: DIZZY - Chief complaint Chief Complaint: Neuro - History obtained from History obtained from: Patient - History of Present Illness Mechanism of head injury: Fell Where head injury occurred: Other (SNF/Dementia care) Timing - onset: Last night (about 6-8 hours ago) Location of injury: Back Quality of pain: Aching Associated symptoms: No: LOC, AMS (she has dementia and poor orientation, so hard for caregivers to discern. She states she has local headache where injured and feels dizzy.) Symptoms worsen with: Palpation. No: Movement Contributing factors: Anticoagulated Similar symptoms before: Has not had sx before Recently seen: Emergency Dept (for decreased mentation and Dx sith UTI.) Review of Systems Unable to obtain: Dementia, Other (info from staff) Respiratory: denies: Cough GI: denies: Vomiting, Diarrhea Skin: denies: Laceration (s) Neurologic: denies: Focal weakness PD PAST MEDICAL HISTORY - Past Medical History Cardiovascular: Coronary artery disease, [place], Atrial fibrillation Respiratory: COPD Neuro: Dementia, CVA - Past Surgical History Past Surgical History: Yes Cardiovascular: Pacemaker - Present Medications Home Medications: Ambulatory Orders Medication Instructions Recorded Confirmed ALPRAZolam [Alprazolam] 0.25 mg PO 01/25/18 Apixaban [Eliquis] 5 mg PO 01/25/18 Aspirin 81 mg PO 01/25/18 Digoxin 125 mcg PO 01/25/18 Donepezil HCl [Donepezil HCl Odt] 10 mg PO 01/25/18 Levothyroxine Sodium 75 mcg PO 01/25/18 Memantine HCl 10 mg PO 01/25/18 Metoprolol Tartrate 50 mg PO 01/25/18 Quetiapine Fumarate [Seroquel] 50 mg PO 01/25/18 Sertraline HCl 100 mg PO 01/25/18 Simvastatin 20 mg PO 01/25/18 Trazodone HCl 50 mg PO 01/25/18 Haloperidol [Haldol] 2 mg PO BID #30 tablet 01/30/18 Cephalexin [Keflex] 500 mg PO Q6H #28 capsule 08/30/18 - Allergies Allergies/Adverse Reactions: Allergies Allergy/AdvReac Type Severity Reaction Status Date / Time No Known Drug Allergies Allergy Verified 09/06/18 02:53 - Social History Does the pt smoke?: No Smoking Status: Never smoker Does the pt drink ETOH?: No Does the pt have substance abuse?: No - Immunizations Immunizations are current?: Yes - POLST Patient has POLST: No PD ED PE NORMAL - Vitals Vital signs reviewed: Yes - General General: No acute distress, Well developed/nourished. No: Alert and oriented X 3 (to person, but not place and time, but she is alert so seems dementia related and not delerium.) - HEENT HEENT: PERRL, EOMI, Other (tender in occiput. ) - Neck Neck: Supple, no meningeal sign, No bony TTP, No adenopathy - Cardiac Cardiac: RRR, No murmur - Respiratory Respiratory: Clear bilaterally - Abdomen Abdomen: Soft, Non tender - Derm Derm: Normal color, Warm and dry - Extremities Extremities: No tenderness to palpate, Normal ROM s pain - Neuro Neuro: No motor deficit, No sensory deficit Results - Vitals Vitals: Vital Signs - 24 hr 09/06/18 09/06/18 02:38 05:32 Temperature 36.0 C L 36.2 C L Heart Rate 60 68 Respiratory 14 14 Rate Blood Pressure 91/78 120/72 O2 Saturation 94 93 Oxygen O2 Source Room air - Labs Labs: Laboratory Tests 09/06/18 09/06/18 09/06/18 02:45 02:45 02:45 WBC 6.8 RBC 3.84 L Hgb 13.0 Hct 38.0 MCV 98.7 MCH 33.9 H MCHC 34.3 RDW 14.9 Plt Count 177 MPV 9.2 Neut # (Auto) 4.2 Lymph # (Auto) 1.5 [place] # (Auto) 0.9 Eos # (Auto) 0.2 Baso # (Auto) 0.1 Absolute Nucleated RBC 0.00 Nucleated RBC % 0.1 Sodium 141 Potassium 3.8 Chloride 104 Carbon Dioxide 26 Anion Gap 11.0 BUN 24 H Creatinine 1.2 H Estimated GFR (MDRD) 43 L Glucose 107 H Calcium 9.1 Magnesium 1.9 Total Bilirubin 1.1 H AST 28 ALT 16 Alkaline Phosphatase 100 Total Protein 7.1 Albumin 4.1 Globulin 3.0 Albumin/Globulin Ratio 1.4 Lipase 23 Urine Color Urine Clarity Urine pH Ur Specific [place] Urine Protein Urine Glucose (UA) Urine Ketones Urine Occult Blood Urine Nitrite Urine Bilirubin Urine Urobilinogen Ur Leukocyte Esterase Urine RBC Urine WBC Ur Squamous Epith Cells Urine Bacteria Urine Casts Ur Microscopic Review Urine Culture Comments Last Dose Date UNK Last Dose Time UNK Digoxin 0.8 09/06/18 04:30 WBC RBC Hgb Hct MCV MCH MCHC RDW Plt Count MPV Neut # (Auto) Lymph # (Auto) [place] # (Auto) Eos # (Auto) Baso # (Auto) Absolute Nucleated RBC Nucleated RBC % Sodium Potassium Chloride Carbon Dioxide Anion Gap BUN Creatinine Estimated GFR (MDRD) Glucose Calcium Magnesium Total Bilirubin AST ALT Alkaline Phosphatase Total Protein Albumin Globulin Albumin/Globulin Ratio Lipase Urine Color YELLOW Urine Clarity CLEAR Urine pH 5.5 Ur Specific [place] >=1.030 H Urine Protein TRACE Urine Glucose (UA) NEGATIVE Urine Ketones 15 H Urine Occult Blood NEGATIVE Urine Nitrite NEGATIVE Urine Bilirubin NEGATIVE Urine Urobilinogen 0.2 (NORMAL) Ur Leukocyte Esterase SMALL H Urine RBC 0-5 Urine WBC 6-10 H Ur Squamous Epith Cells MANY Squamous H Urine Bacteria Few Urine Casts 3-5 Hyaline Casts Ur Microscopic Review INDICATED Urine Culture Comments NOT INDICATED Last Dose Date Last Dose Time Digoxin - Rads (name of study) head CT Radiology: Prelim report reviewed (no acute injury) PD MEDICAL DECISION MAKING - ED course Complexity details: reviewed results, considered differential (has scalp contusion and is on NOAC. will bet head CT. recent UTI so will check to see if clearing okay), d/w patient Departure - Departure Disposition: 01 Home, Self Care Clinical Impression: Fall Qualifiers: Encounter type: initial encounter Qualified Code(s): W19.XXXA - Unspecified fall, initial encounter Head contusion Qualifiers: Encounter type: initial encounter Contusion of head detail: scalp Qualified Code(s): S00.03XA - Contusion of scalp, initial encounter Condition: Stable Record reviewed to determine appropriate education?: Yes Instructions: ED Contusion Scalp Follow-Up: Dwaine Tafoya PA-C [Primary Care Provider] - Comments: Your head CT scan does not show any signs of bleeding within the brain cavity. Your basic blood tests are normal. Your urine test shows improvement of the recent infection. Finish out the current antibiotics you are taking for that. Tylenol if needed for headaches. Discharge Date/Time: 09/06/18 06:05
[2018-09-06] MEDS ORDERED: ACETAMINOPHEN 325 MG TABLET PO STA (03:10)
[2018-09-06 03:18] LABS: BASOPHILS # (AUTO) 0.1 10^3/uL (0.0-0.1); BASOPHILS % (AUTO) 0.8 %; EOSINOPHILS # (AUTO) 0.2 10^3/uL (0.0-0.7); EOSINOPHILS % (AUTO) 2.3 %; LYMPHOCYTES # (AUTO) 1.5 10^3/uL (1.5-3.5); LYMPHOCYTES % (AUTO) 21.8 %; MEAN CORPUSCULAR HEMOGLOBIN 33.9 pg (27.0-31.0); MEAN CORPUSCULAR HGB CONC 34.3 g/dL (32.0-36.0); MEAN CORPUSCULAR VOLUME 98.7 fL (81.0-99.0); MEAN PLATELET VOLUME 9.2 fL (7.9-10.8); MONOCYTES # (AUTO) 0.9 10^3/uL (0.0-1.0); MONOCYTES % (AUTO) 13.5 %; NEUTROPHILS # (AUTO) 4.2 10^3/uL (1.5-6.6); NEUTROPHILS % (AUTO) 61.6 %; PLT - PLATELET COUNT 177 10^3/uL (130-450); RED BLOOD COUNT 3.84 10^6/uL (4.20-5.40); RED CELL DISTRIBUTION WIDTH 14.9 % (12.0-15.0); WHITE BLOOD COUNT 6.8 x10^3/uL (4.8-10.8)
[2018-09-06 03:27] LABS: ALBUMIN 4.1 g/dL (3.2-5.5); ALBUMIN/GLOBULIN RATIO 1.4 (1.0-2.2); BILIRUBIN,TOTAL 1.1 mg/dL (0.2-1.0); CALCIUM 9.1 mg/dL (8.5-10.3); CREATININE 1.2 mg/dL (0.4-1.0); TOTAL PROTEIN 7.1 g/dL (6.7-8.2)
[2018-09-06 03:29] LABS: DIGOXIN 0.8 ng/mL; MAGNESIUM 1.9 mg/dL (1.7-2.8)
--- NOTE | 2018-09-06 03:50 | CT Report ---
Reason: fall with head injury; dizzy now Procedure Date: 09/06/2018 Accession Number: [id number] / [id number] Procedure: CT - Head W/O CPT Code: FULL RESULT: EXAM: CT HEAD EXAM DATE: 09/06/2018 03:38 AM. CLINICAL HISTORY: Fall with head injury; dizzy now. COMPARISON: CT head 08/08/2018. TECHNIQUE: Multiaxial CT images were obtained from the foramen magnum to the vertex. Reformats: Sagittal and coronal. IV contrast: None. In accordance with CT protocol optimization, one or more of the following dose reduction techniques were utilized for this exam: automated exposure control, adjustment of mA and/or KV based on patient size, or use of iterative reconstructive technique. FINDINGS: Parenchyma: No intraparenchymal hemorrhage. No evidence of mass, midline shift, or CT findings of acute infarction. Webber-white differentiation is distinct. Encephalomalacia in the right frontal lobe is compatible with a chronic infarct. This is unchanged. Extraaxial Spaces: Normal for age. No subdural or epidural collections identified. Ventricles: Normal in size and position. Sinuses and Orbits: Imaged paranasal sinuses and orbits are unremarkable. Partial opacification of the right mastoid air cells is unchanged. Bones: No evidence of fracture or calvarial defect. Other: None. IMPRESSION: 1. No acute intracranial abnormality. No significant change compared to 08/08/2018. 2. No skull fracture. 3. 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 RADIA
[2018-09-06 04:33] LABS: GLUCOSE, URINE (UA) NEGATIVE (NEGATIVE); KETONES,URINE (UA) 15 mg/dL (NEGATIVE); LEUKOCYTE ESTERASE, URINE SMALL (NEGATIVE); NITRITE,URINE NEGATIVE (NEGATIVE); OCCULT BLOOD,URINE NEGATIVE (NEGATIVE); PH,URINE 5.5 PH (5.0-7.5); PROTEIN,URINE TRACE mg/dL (NEGATIVE); UROBILINOGEN,URINE 0.2 (NORMAL) E.U./dL (NORMAL)
[2018-09-06 04:34] LABS: BILIRUBIN,URINE NEGATIVE (NEGATIVE); CLARITY,URINE CLEAR (CLEAR); ICTOTEST,URINE NEGATIVE
[2018-09-06 04:40] LABS: RBC,URINE 0-5 /HPF (0-5); SQUAMOUS EPITHELIAL CELL,UR MANY Squamous (<= Few)
[2018-09-06 04:41] LABS: BACTERIA,URINE Few /HPF (None Seen); CASTS, URINE 3-5 Hyaline Casts /LPF
[2018-09-06 05:33] VITALS: BP 120/72
== END 2018-09-06 06:05 | disposition home or self-care (01) ==
LOC: EDUNIT# → ED 02:38
DX: S00.03XA Contusion of scalp, initial encounter (principal); W19.XXXA Unspecified fall, initial encounter; Y92.129 Unspecified place in nursing home as the place of occurrence of the external cause; F03.90 Unspecified dementia, unspecified severity, without behavioral disturbance, psychotic disturbance, mood disturbance, and anxiety; I25.10 Atherosclerotic heart disease of native coronary artery without angina pectoris; I48.91 Unspecified atrial fibrillation; I25.2 Old myocardial infarction; J44.9 Chronic obstructive pulmonary disease, unspecified; Z86.73 Personal history of transient ischemic attack (TIA), and cerebral infarction without residual deficits; Z95.0 Presence of cardiac pacemaker; Z79.01 Long term (current) use of anticoagulants
CPT/HCPCS: 36415; 70450; 80053; 80162; 81001; 83690; 83735; 85025; 93005; 99283; A9270; 81003; 87086

== ENCOUNTER 2018-09-06 06:07 | Outpatient (CLI) | payer MEDICARE, MEDICAID | END 2018-09-06 06:08 | disposition home or self-care (01) | LOC: EMS 06:07 | PROVIDERS: ATTEND Surgery | DX: S00.03XA Contusion of scalp, initial encounter (principal); W19.XXXA Unspecified fall, initial encounter; F03.90 Unspecified dementia, unspecified severity, without behavioral disturbance, psychotic disturbance, mood disturbance, and anxiety | CPT/HCPCS: A0425; A0428 ==

== ENCOUNTER 2018-09-07 09:37 | Outpatient (CLI) | payer MEDICARE, MEDICAID | END 2018-09-07 09:38 | disposition critical access hospital (66) | LOC: EMS 09:37 | PROVIDERS: ATTEND Surgery | DX: R41.82 Altered mental status, unspecified (principal) | CPT/HCPCS: A0425; A0429 ==

== ENCOUNTER 2018-09-09 17:54 | Outpatient (CLI) | payer MEDICARE, MEDICAID | END 2018-09-09 23:59 | disposition critical access hospital (66) | LOC: EMS 17:54 | PROVIDERS: ATTEND Surgery | DX: R51 Headache (principal); S00.212A Abrasion of left eyelid and periocular area, initial encounter; W19.XXXA Unspecified fall, initial encounter; Y92.098 Other place in other non-institutional residence as the place of occurrence of the external cause | CPT/HCPCS: A0425; A0429 ==

== ENCOUNTER 2018-09-09 18:11 | Emergency (ER) | payer MEDICARE, MEDICAID ==
--- NOTE | 2018-09-09 18:29 | ED Physician Documentation ---
PD HPI MAJOR TRAUMA - Stated complaint Stated Complaint: GLF - Chief complaint Chief Complaint: Trauma Hd/Nk - History obtained from History obtained from: Patient, EMS - History of Present Illness Mechanism of injury: Fell (Found at assisted living at 1730 today on the floor.) - Additional information Additional information: She does not remember falling, but she has dementia and that is not atypical. She complains of upper back pain, occipital head pain. Review of Systems Unable to obtain: Confused, Dementia PD PAST MEDICAL HISTORY - Past Medical History Cardiovascular: Coronary artery disease, [place], Atrial fibrillation Respiratory: COPD Neuro: Dementia, CVA - Past Surgical History Past Surgical History: Yes Cardiovascular: Pacemaker - Present Medications Home Medications: Ambulatory Orders Medication Instructions Recorded Confirmed Apixaban [Eliquis] 5 mg PO DAILY 01/25/18 09/07/18 Aspirin 81 mg PO BID 01/25/18 09/07/18 Digoxin 125 mcg PO DAILY 01/25/18 09/07/18 Donepezil HCl [Donepezil HCl Odt] 10 mg PO DAILY 01/25/18 09/07/18 Levothyroxine Sodium 75 mcg PO DAILY 01/25/18 09/07/18 Memantine HCl 10 mg PO DAILY 01/25/18 09/07/18 Metoprolol Tartrate 50 mg PO DAILY PM 01/25/18 09/07/18 Quetiapine Fumarate [Seroquel] 50 mg PO BID 01/25/18 09/07/18 Sertraline HCl 100 mg PO DAILY 01/25/18 09/07/18 Simvastatin 20 mg PO DAILY 01/25/18 09/07/18 Trazodone HCl 50 mg PO DAILY PM PRN 01/25/18 09/07/18 Cephalexin [Keflex] 500 mg PO Q6H #28 capsule 08/30/18 09/08/18 Haloperidol [Haldol] 2 mg PO BID PRN 09/07/18 09/07/18 Cephalexin [Keflex] 500 mg PO BID #6 capsule 09/08/18 Hydrocodone/Acetaminophen 1 - 2 each PO Q6H PRN #14 tablet 09/09/18 [Hydrocodon-Acetaminophen 5-325] - Allergies Allergies/Adverse Reactions: Allergies Allergy/AdvReac Type Severity Reaction Status Date / Time No Known Drug Allergies Allergy Verified 09/09/18 18:28 - Social History Does the pt smoke?: No Smoking Status: Never smoker Does the pt drink ETOH?: No Does the pt have substance abuse?: No - Immunizations Immunizations are current?: Yes - POLST Patient has POLST: No PD ED PE NORMAL - Vitals Vital signs reviewed: Yes - General General: No acute distress, Other (A/O x 2,) - HEENT HEENT: PERRL, EOMI, Other (Bruise R eyebrow, nTTP) - Neck Neck: Supple, no meningeal sign, No bony TTP - Cardiac Cardiac: No murmur, Other (irregularly irregular) - Respiratory Respiratory: No respiratory distress, Clear bilaterally - Abdomen Abdomen: Soft, Non tender - Back Back: No CVA TTP, No spinal TTP - Derm Derm: Normal color, Warm and dry - Extremities Extremities: No deformity, No tenderness to palpate, Normal ROM s pain, Other (Bruise under R clavicle) - Neuro Eye Opening: Spontaneous Motor: Obeys Commands Verbal: Confused GCS Score: 14 - Psych Psych: Normal mood, Normal affect Results - Vitals Vitals: Vital Signs - 24 hr 09/09/18 18:15 Temperature 35.7 C L Heart Rate 66 Respiratory 16 Rate Blood Pressure 156/107 H O2 Saturation 94 Oxygen O2 Source Room air - Labs Labs: Laboratory Tests 09/09/18 09/09/18 09/09/18 19:10 19:10 19:10 WBC 7.2 RBC 3.81 L Hgb 12.5 Hct 38.3 MCV 100.5 H MCH 32.8 H MCHC 32.7 RDW 14.8 Plt Count 166 MPV 8.6 Neut # (Auto) 5.3 Lymph # (Auto) 1.1 L [place] # (Auto) 0.7 Eos # (Auto) 0.1 Baso # (Auto) 0.1 Absolute Nucleated RBC 0.00 Nucleated RBC % 0.0 Sodium 140 Potassium 3.5 Chloride 104 Carbon Dioxide 22 Anion Gap 14.0 H BUN 7 Creatinine 0.8 Estimated GFR (MDRD) 69 L Glucose 94 Calcium 8.8 Total Bilirubin 1.7 H AST 23 ALT 17 Alkaline Phosphatase 92 Total Protein 6.7 Albumin 3.8 Globulin 2.9 Albumin/Globulin Ratio 1.3 Lipase 25 Digoxin 0.6 - Rads (name of study) CT Head, C Spine and T spine Radiology: EMP read contemporaneously (No intracranial hemorrhage, she has degenerative changes in the neck which are unchanged in 2 acute appearing small compression fractures, T11 and L2.) PD MEDICAL DECISION MAKING - ED course ED course: The son was here. We discussed the findings. We discussed pain medication. She did not need any here. I was hesitant to give her narcotic despite the spinal fracture given her advanced dementia. He is agreeable. We agreed that I would write a prescription but he will not fill it unless her pain is uncontrolled with Tylenol. Departure - Departure Disposition: 01 Home, Self Care Clinical Impression: Do not intubate, cardiopulmonary resuscitation (CPR)-only code status, Cervical strain, acute, Vertebral compression fracture Dementia Qualifiers: Dementia type: Alzheimer's disease Alzheimer's disease onset: unspecified onset Dementia behavioral disturbance: with behavioral disturbance Qualified Code(s): G30.9 - Alzheimer's disease, unspecified; F02.81 - Dementia in other diseases classified elsewhere with behavioral disturbance Head contusion Qualifiers: Encounter type: initial encounter Contusion of head detail: unspecified part of head Qualified Code(s): S00.93XA - Contusion of unspecified part of head, initial encounter Fall Qualifiers: Encounter type: initial encounter Qualified Code(s): W19.XXXA - Unspecified fall, initial encounter Condition: Good Record reviewed to determine appropriate education?: Yes Instructions: ED Dementia Caregiver Support, ED Fx Comp Vertebral Prescriptions: Hydrocodone/Acetaminophen [Hydrocodon-Acetaminophen 5-325] 1 - 2 each PO Q6H PRN #14 tablet PRN Reason: pain Comments: She must use her walker at all times. Call your doctor to arrange a follow-up appointment, make the next available appointment. In the interim, return anytime if worse or if new symptoms develop. Your blood pressure was elevated today on check into the emergency department. This does not mean that you have hypertension, it is a common phenomenon to come to the emergency department and have elevated blood pressure. I recommend that you see your primary care physician within the week to have it rechecked when you are feeling better.
[2018-09-09 19:20] LABS: BASOPHILS # (AUTO) 0.1 10^3/uL (0.0-0.1); BASOPHILS % (AUTO) 0.9 %; EOSINOPHILS # (AUTO) 0.1 10^3/uL (0.0-0.7); EOSINOPHILS % (AUTO) 1.1 %; HGB - HEMOGLOBIN 12.5 g/dL (12.0-16.0); LYMPHOCYTES # (AUTO) 1.1 10^3/uL (1.5-3.5); LYMPHOCYTES % (AUTO) 14.6 %; MEAN CORPUSCULAR HEMOGLOBIN 32.8 pg (27.0-31.0); MEAN CORPUSCULAR HGB CONC 32.7 g/dL (32.0-36.0); MEAN CORPUSCULAR VOLUME 100.5 fL (81.0-99.0); MEAN PLATELET VOLUME 8.6 fL (7.9-10.8); MONOCYTES # (AUTO) 0.7 10^3/uL (0.0-1.0); MONOCYTES % (AUTO) 9.8 %; NEUTROPHILS # (AUTO) 5.3 10^3/uL (1.5-6.6); NEUTROPHILS % (AUTO) 73.6 %; PLT - PLATELET COUNT 166 10^3/uL (130-450); RED BLOOD COUNT 3.81 10^6/uL (4.20-5.40); RED CELL DISTRIBUTION WIDTH 14.8 % (12.0-15.0); WHITE BLOOD COUNT 7.2 x10^3/uL (4.8-10.8)
--- NOTE | 2018-09-09 19:23 | XRAY Report ---
Reason: chest wall inj Procedure Date: 09/09/2018 Accession Number: [id number] / [id number] Procedure: XR - Clavicle RT CPT Code: FULL RESULT: EXAM: RIGHT CLAVICLE RADIOGRAPHY EXAM DATE: 09/09/2018 07:00 PM. CLINICAL HISTORY: Fall. Chest wall injury. Shoulder pain. COMPARISON: CHEST 1 VIEW 09/07/2018 11:54 AM. TECHNIQUE: 2 views. FINDINGS: Bones: No fracture identified. Advanced degenerative changes of the glenohumeral joint. Mild degenerative changes of the acromioclavicular joint. Joints: The acromioclavicular and sternoclavicular joints are normal. No subluxation. Soft Tissues: Unremarkable. IMPRESSION: 1. No fracture identified. 2. Advanced degenerative changes of the glenohumeral joint and mild degenerative changes of the acromioclavicular joint. RADIA
--- NOTE | 2018-09-09 19:32 | CT Report ---
Reason: head inj, anticoagulated Procedure Date: 09/09/2018 Accession Number: [id number] / [id number] Procedure: CT - Head W/O CPT Code: FULL RESULT: EXAM: CT HEAD EXAM DATE: 09/09/2018 06:49 PM. CLINICAL HISTORY: Head injury. Anticoagulated. COMPARISON: HEAD W/O 09/06/2018 3:15 AM. TECHNIQUE: Multiaxial CT images were obtained from the foramen magnum to the vertex. Reformats: Sagittal and coronal. IV contrast: None. In accordance with CT protocol optimization, one or more of the following dose reduction techniques were utilized for this exam: automated exposure control, adjustment of mA and/or KV based on patient size, or use of iterative reconstructive technique. FINDINGS: Parenchyma: No intraparenchymal hemorrhage. Stable old superior right frontal lobe cortical infarction. No evidence of mass, midline shift, or CT findings of acute infarction. Webber-white differentiation is distinct. Extraaxial Spaces: Normal for age. No subdural or epidural collections identified. Ventricles: Normal in size and position. Sinuses and Orbits: Opacified right mastoid air cells again noted. Imaged paranasal sinuses, orbits, and left mastoids show no significant abnormality. Bones: No evidence of fracture or calvarial defect. Other: None. IMPRESSION: No acute intracranial abnormality or interval change. RADIA
--- NOTE | 2018-09-09 19:36 | CT Report ---
Reason: head inj, anticoagulated Procedure Date: 09/09/2018 Accession Number: [id number] / [id number] Procedure: CT - Cervical Spine W/O CPT Code: FULL RESULT: EXAM: CT CERVICAL SPINE WITHOUT CONTRAST DATE: 09/09/2018 06:49 PM. HISTORY: Fall. Head injury. Anticoagulated. COMPARISONS: CERVICAL SPINE W/O 08/08/2018 4:14 PM. TECHNIQUE: Thin-section axial images were acquired of the cervical spine without contrast. Post-processing: Coronal and sagittal reformats. Other: None. In accordance with CT protocol optimization, one or more of the following dose reduction techniques were utilized for this exam: automated exposure control, adjustment of mA and/or KV based on patient size, or use of iterative reconstructive technique. FINDINGS: Alignment: No scoliosis. Stable 2 mm anterolisthesis at C7-T1. Bones: No fracture or bone lesion. Interspace Levels/Facets: Stable advanced degenerative disk disease, C3-T1. Other: The paravertebral and prevertebral soft tissues are unremarkable. The lung apices are clear. IMPRESSION: 1. No acute cervical spine abnormalities. 2. Stable mild anterolisthesis at C7-T1 and advanced degenerative disk disease, C3-T1. RADIA
[2018-09-09 19:39] LABS: DIGOXIN 0.6 ng/mL
[2018-09-09 19:41] LABS: ALBUMIN 3.8 g/dL (3.2-5.5); ALBUMIN/GLOBULIN RATIO 1.3 (1.0-2.2); BILIRUBIN,TOTAL 1.7 mg/dL (0.2-1.0); CALCIUM 8.8 mg/dL (8.5-10.3); CREATININE 0.8 mg/dL (0.4-1.0); TOTAL PROTEIN 6.7 g/dL (6.7-8.2)
--- NOTE | 2018-09-09 19:43 | CT Report ---
Reason: back pain, injury, fall Procedure Date: 09/09/2018 Accession Number: [id number] / [id number] Procedure: CT - Thoracic Spine W/O CPT Code: FULL RESULT: EXAM: CT THORACIC SPINE WITHOUT CONTRAST EXAM DATE: 09/09/2018 06:49 PM. CLINICAL HISTORY: Back pain. Injury. Fall. COMPARISONS: HEAD W/O 09/06/2018 3:15 AM. TECHNIQUE: Thin-section axial images were acquired of the thoracic spine from C7 to L1 without contrast. Post-processing: Coronal and sagittal reformats. Other: None. In accordance with CT protocol optimization, one or more of the following dose reduction techniques were utilized for this exam: automated exposure control, adjustment of mA and/or KV based on patient size, or use of iterative reconstructive technique. FINDINGS: Alignment: No scoliosis or spondylolisthesis. Bones: Mild superior endplate compression fractures at T11 and L2, acute in appearance. Disk Levels/Facets: Diffuse endplate spurring. Multilevel disk space narrowing in the mid thoracic spine and at T12-L1. Other: The visualized lungs, mediastinum, and abdominal cavity are unremarkable. IMPRESSION: Mild acute appearing superior endplate compression fractures at T11 and L2. RADIA
[2018-09-09 20:16] VITALS: BP 146/89
== END 2018-09-09 20:11 | disposition home or self-care (01) ==
LOC: EDUNIT# → ED 18:11
DX: G30.9 Alzheimer's disease, unspecified (principal); F02.81 Dementia in other diseases classified elsewhere, unspecified severity, with behavioral disturbance; S00.11XA Contusion of right eyelid and periocular area, initial encounter; S20.221A Contusion of right back wall of thorax, initial encounter; R03.0 Elevated blood-pressure reading, without diagnosis of hypertension; I25.10 Atherosclerotic heart disease of native coronary artery without angina pectoris; I25.2 Old myocardial infarction; J44.9 Chronic obstructive pulmonary disease, unspecified; Z86.79 Personal history of other diseases of the circulatory system; Z86.73 Personal history of transient ischemic attack (TIA), and cerebral infarction without residual deficits; Z79.01 Long term (current) use of anticoagulants; Z95.0 Presence of cardiac pacemaker; W18.30XA Fall on same level, unspecified, initial encounter; Y92.191 Dining room in other specified residential institution as the place of occurrence of the external cause
CPT/HCPCS: 36415; 70450; 72125; 72128; 80053; 80162; 83690; 85025; 99283; 99284

== ENCOUNTER 2019-04-16 15:36 | Outpatient (CLI) | payer MEDICARE, MEDICAID | END 2019-04-16 15:37 | disposition critical access hospital (66) | LOC: EMS 15:36 | PROVIDERS: ATTEND Surgery | DX: R21 Rash and other nonspecific skin eruption (principal) | CPT/HCPCS: A0425; A0429 ==

== ENCOUNTER 2019-04-16 15:56 | Emergency (ER) | payer MEDICARE, MEDICAID ==
[2019-04-16 16:06] VITALS: BP 134/71
--- NOTE | 2019-04-16 16:16 | ED Physician Documentation ---
PD HPI SKIN - Stated complaint Stated Complaint: RASH - Chief complaint Chief Complaint: Wound - History obtained from History obtained from: Patient, EMS, Caregiver (staff at [facility]) - History of Present Illness Timing - onset: Today Timing - duration: Days (staff just noticed the rash today, on legs up to hips. No new soaps, foods, meds. Was on abx for URI/pneumonia, per son, but finished it few days ago. Patient was not seeming bothered by the rash (not scratching nor fidgeting).) Timing - details: Abrupt onset, Still present Location: Bodywide (mostly both legs and lower back. not noted on chest, upper back, nor arms) Quality / character: Discolored (patchy red spots on both legs diffusely). No: Itchy, Raised, Vesicular Associated symptoms: No: Fever, Abd pain, N/V/D Contributing factors: Exposed to medication (no recent change in ongoing meds. Son says recent abx for URI but finished it few days ago. Not sure of med name. It is not on her current MAR (only listed meds and not the admin record for the month).). No: Exposed to food, Exposed to soap / lotion Similar symptoms before: Has not had sx before Review of Systems Unable to obtain: Dementia, Other (info from son and EMS.) Constitutional: reports: Weight Loss (sons says she has little appetite and does not focus on eating due to her dementia. Does walk in hallways commonly.). denies: Fever Respiratory: denies: Dyspnea, Cough GI: denies: Abdominal Pain, Diarrhea, Bloody / black stool : reports: Incontinent Skin: reports: Rash (noted today) PD PAST MEDICAL HISTORY - Past Medical History Cardiovascular: Coronary artery disease, [place], Atrial fibrillation Respiratory: COPD Neuro: Dementia, CVA - Past Surgical History Past Surgical History: Yes Cardiovascular: Pacemaker - Present Medications Home Medications: Ambulatory Orders Medication Instructions Recorded Confirmed Apixaban [Eliquis] 5 mg PO DAILY 01/25/18 04/16/19 Aspirin 81 mg PO BID 01/25/18 04/16/19 Digoxin 125 mcg PO DAILY 01/25/18 04/16/19 Donepezil HCl [Donepezil HCl Odt] 10 mg PO DAILY 01/25/18 04/16/19 Levothyroxine Sodium 75 mcg PO DAILY 01/25/18 04/16/19 Memantine HCl 10 mg PO DAILY 01/25/18 04/16/19 Metoprolol Tartrate 50 mg PO DAILY PM 01/25/18 04/16/19 Quetiapine Fumarate [Seroquel] 50 mg PO BID 01/25/18 04/16/19 Sertraline HCl 100 mg PO DAILY 01/25/18 04/16/19 Simvastatin 20 mg PO DAILY 01/25/18 04/16/19 Trazodone HCl 50 mg PO DAILY PM PRN 01/25/18 04/16/19 Cephalexin [Keflex] 500 mg PO Q6H #28 capsule 08/30/18 04/16/19 Haloperidol [Haldol] 2 mg PO BID PRN 09/07/18 04/16/19 Cephalexin [Keflex] 500 mg PO BID #6 capsule 09/08/18 04/16/19 Hydrocodone/Acetaminophen 1 - 2 each PO Q6H PRN #14 tablet 09/09/18 04/16/19 [Hydrocodon-Acetaminophen 5-325] Cetirizine [ZyrTEC] 10 mg PO DAILY #7 tablet 04/16/19 Ferrous Sulfate 325 mg PO DAILY #30 tablet 04/16/19 dexAMETHasone [Decadron] 4 mg PO DAILY #5 tablet 04/16/19 - Allergies Allergies/Adverse Reactions: Allergies Allergy/AdvReac Type Severity Reaction Status Date / Time No Known Drug Allergies Allergy Verified 04/16/19 16:06 - Social History Does the pt smoke?: No Smoking Status: Never smoker Does the pt drink ETOH?: No Does the pt have substance abuse?: No - Immunizations Immunizations are current?: Yes - POLST Patient has POLST: No PD ED PE NORMAL - Vitals Vital signs reviewed: Yes - General General: No acute distress, Well developed/nourished. No: Alert and oriented X 3 (poor interaction. 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 Moves all extremities. ) - HEENT HEENT: Atraumatic, Pharynx benign - Neck Neck: Supple, no meningeal sign, No adenopathy - Cardiac Cardiac: RRR, No murmur - Respiratory Respiratory: Clear bilaterally - Abdomen Abdomen: Soft, Non tender - Rectal Rectal: Other (patient was on gurney in hallway in ER, so did not get regular rectal exam. Some trace of stool in Depends, under blanket, was sampled and was brown/guiac negative. ) - Derm Derm: Warm and dry Results - Vitals Vitals: Vital Signs - 24 hr 04/16/19 16:01 Temperature 36.9 C Heart Rate 62 Respiratory 16 Rate Blood Pressure 134/71 H O2 Saturation 92 Oxygen O2 Source Room air - Labs Labs: Laboratory Tests 04/16/19 04/16/19 04/16/19 16:44 16:44 16:44 WBC 10.0 RBC 3.16 L Hgb 8.7 L Hct 28.8 L MCV 91.1 MCH 27.5 MCHC 30.2 L RDW 16.5 H Plt Count 195 MPV 10.8 Neut # (Auto) 7.6 H Lymph # (Auto) 1.4 L [place] # (Auto) 0.9 Eos # (Auto) 0.1 Baso # (Auto) 0.0 Absolute Nucleated RBC 0.00 Nucleated RBC % 0.0 ESR 35 H Sodium 140 Potassium 4.4 Chloride 102 Carbon Dioxide 25 Anion Gap 13.0 BUN 67 H Creatinine 1.3 H Estimated GFR (MDRD) 40 L Glucose 125 H Calcium 9.0 Magnesium 2.0 Iron TIBC % Saturation Transferrin Ferritin Total Bilirubin 0.5 AST 19 ALT 16 Alkaline Phosphatase 85 Total Protein 6.9 Albumin 3.8 Globulin 3.1 Albumin/Globulin Ratio 1.2 Lipase 38 Vitamin B12 Last Dose Date UNKNOWN Last Dose Time UNKNOWN Digoxin 0.5 04/16/19 04/16/19 04/16/19 16:44 16:44 16:44 WBC RBC Hgb Hct MCV MCH MCHC RDW Plt Count MPV Neut # (Auto) Lymph # (Auto) [place] # (Auto) Eos # (Auto) Baso # (Auto) Absolute Nucleated RBC Nucleated RBC % ESR Sodium Potassium Chloride Carbon Dioxide Anion Gap BUN Creatinine Estimated GFR (MDRD) Glucose Calcium Magnesium Iron 50 54 TIBC 518 H % Saturation 10 L Transferrin 370 Ferritin 6.2 L Total Bilirubin AST ALT Alkaline Phosphatase Total Protein Albumin Globulin Albumin/Globulin Ratio Lipase Vitamin B12 510 Last Dose Date Last Dose Time Digoxin PD MEDICAL DECISION MAKING - ED course Complexity details: reviewed results, considered differential (hives appearing rash on legs up to low back and hips, without vesicles. Rest of body without rash. Likely allergic rather than contact dermatitis. ), d/w family (son) Departure - Departure Disposition: 01 Home, Self Care Clinical Impression: Body rash, Anemia Condition: Stable Record reviewed to determine appropriate education?: Yes Instructions: ED Dermatitis Non Specific Rash Follow-Up: Dwaine Tafoya PA-C [Primary Care Provider] - Prescriptions: Cetirizine [ZyrTEC] 10 mg PO DAILY #7 tablet dexAMETHasone [Decadron] 4 mg PO DAILY #5 tablet Ferrous Sulfate 325 mg PO DAILY #30 tablet Comments: Encourage fluids. Continue usual medications. Give Decadron steroid 4 mg orally daily for 5 days for presumed allergic reaction. Cetirizine 10 mg daily for a week for allergic reaction. Ferrous sulfate 325 mg daily for a month for anemia. Follow-up with your primary care if symptoms are not improved well over the next few days. Guaiac stools for the next 3 days. Follow-up with your primary care for blood count recheck in 2 to 3 weeks. Discharge Date/Time: 04/16/19 17:39
[2019-04-16] MEDS ORDERED: DEXAMETHASONE 10 MG/ML VIAL PO STA (16:35)
[2019-04-16] MEDS ORDERED: diphenhydrAMINE ELIXIR 25 MG/10 ML UDC PO STA (16:35)
[2019-04-16] MEDS ORDERED: CHERRY SYRUP 10 ML UDC PO ONE (16:35)
[2019-04-16 16:49] LABS: BASOPHILS % (AUTO) 0.2 %; EOSINOPHILS # (AUTO) 0.1 10^3/uL (0.0-0.7); EOSINOPHILS % (AUTO) 0.8 %; HGB - HEMOGLOBIN 8.7 g/dL (12.0-16.0); LYMPHOCYTES # (AUTO) 1.4 10^3/uL (1.5-3.5); MEAN CORPUSCULAR HEMOGLOBIN 27.5 pg (27.0-31.0); MEAN CORPUSCULAR HGB CONC 30.2 g/dL (32.0-36.0); MEAN CORPUSCULAR VOLUME 91.1 fL (81.0-99.0); MEAN PLATELET VOLUME 10.8 fL (7.9-10.8); MONOCYTES # (AUTO) 0.9 10^3/uL (0.0-1.0); NEUTROPHILS # (AUTO) 7.6 10^3/uL (1.5-6.6); NEUTROPHILS % (AUTO) 75.6 %; PLT - PLATELET COUNT 195 10^3/uL (130-450); RED BLOOD COUNT 3.16 10^6/uL (4.20-5.40); RED CELL DISTRIBUTION WIDTH 16.5 % (12.0-15.0)
[2019-04-16 17:03] LABS: ALBUMIN 3.8 g/dL (3.2-5.5); ALBUMIN/GLOBULIN RATIO 1.2 (1.0-2.2); ALKALINE PHOSPHATASE 85 IU/L (42-121); ALT ALANINE AMINOTRANSFERASE 16 IU/L (10-60); AST ASPARTATE AMINOTRANSFERASE 19 IU/L (10-42); BILIRUBIN,TOTAL 0.5 mg/dL (0.2-1.0); BUN - BLOOD UREA NITROGEN 67 mg/dL (6-20); CARBON DIOXIDE - CO2 25 mmol/L (21-32); CHLORIDE 102 mmol/L (101-111); CREATININE 1.3 mg/dL (0.4-1.0); DIGOXIN 0.5 ng/mL; GFR - MDRD 40 (>89); GLUCOSE 125 mg/dL (70-100); LIPASE 38 U/L (22-51); SODIUM 140 mmol/L (135-145); TOTAL PROTEIN 6.9 g/dL (6.7-8.2)
[2019-04-16 17:46] LABS: % IRON SATURATION 10 % (20-50); IRON 54 ug/dL (28-170); TOTAL IRON BINDING CAPACITY 518 ug/dL (250-450); TRANSFERRIN 370 mg/dL (192-382)
[2019-04-16 17:52] LABS: FERRITIN 6.2 ng/mL (11.0-306.8)
== END 2019-04-16 17:39 | disposition home or self-care (01) ==
LOC: EDUNIT# → ED 15:56
DX: R21 Rash and other nonspecific skin eruption (principal); D64.9 Anemia, unspecified; Z86.73 Personal history of transient ischemic attack (TIA), and cerebral infarction without residual deficits; I25.10 Atherosclerotic heart disease of native coronary artery without angina pectoris; I25.2 Old myocardial infarction; F03.90 Unspecified dementia, unspecified severity, without behavioral disturbance, psychotic disturbance, mood disturbance, and anxiety; Z79.82 Long term (current) use of aspirin; Z95.0 Presence of cardiac pacemaker
CPT/HCPCS: 36415; 80053; 80162; 82607; 82728; 83540; 83690; 83735; 84466; 85025; 85651; 99283; A9270

== ENCOUNTER 2019-05-04 11:26 | Outpatient (CLI) | payer MEDICARE, MEDICAID | END 2019-05-04 11:27 | disposition critical access hospital (66) | LOC: EMS 11:26 | PROVIDERS: ATTEND Surgery | DX: M25.551 Pain in right hip (principal); W19.XXXA Unspecified fall, initial encounter; Y92.099 Unspecified place in other non-institutional residence as the place of occurrence of the external cause | CPT/HCPCS: A0425; A0429 ==

== ENCOUNTER 2019-05-04 11:46 | Emergency (ER) | payer MEDICARE, MEDICAID ==
--- NOTE | 2019-05-04 12:07 | ED Physician Documentation ---
History of Present Illness - Stated complaint Stated Complaint: GLF - Chief complaint Chief Complaint: Ext Problem - History obtained from History obtained from: Family - Additonal information Additional information: Patient is a 78-year-old female with history of dementia anticoagulated with Eliquis presenting with her son after witnessed fall while at her memory care nursing facility last night. Patient uses a walker and staff reported to send that she turned a corner too quickly and landed directly onto her bottom. No striking of head or loss of consciousness. Patient denied any areas of d iscomfort until this morning when she complained of left hip pain, although has been ambulating at her baseline. Son reports that patient is at her mental and physical baseline which is basically nonverbal. No one has reported new fever, chest pain, difficulty breathing, nausea, vomiting, abdominal pain, urinary or stool changes, although patient is incontinent at baseline. No other improving or worsening factors noted. Review of Systems Unable to obtain: Other (Obtained through son) Constitutional: denies: Fever Cardiac: denies: Chest pain / pressure Respiratory: denies: Dyspnea GI: denies: Abdominal Pain, Nausea, Vomiting, Diarrhea : denies: Dysuria Skin: reports: Other (Scattered bruising Of variable age) Musculoskeletal: reports: Extremity pain. denies: Neck pain, Back pain Neurologic: denies: Focal weakness, Numbness, Head injury, LOC PD PAST MEDICAL HISTORY - Past Medical History Past Medical History: Yes Cardiovascular: Coronary artery disease, [place], Atrial fibrillation Respiratory: COPD Neuro: Dementia, CVA - Past Surgical History Past Surgical History: Yes Cardiovascular: Pacemaker - Present Medications Home Medications: Ambulatory Orders Medication Instructions Recorded Confirmed Apixaban [Eliquis] 5 mg PO DAILY 01/25/18 04/16/19 Aspirin 81 mg PO BID 01/25/18 04/16/19 Digoxin 125 mcg PO DAILY 01/25/18 04/16/19 Donepezil HCl [Donepezil HCl Odt] 10 mg PO DAILY 01/25/18 04/16/19 Levothyroxine Sodium 75 mcg PO DAILY 01/25/18 04/16/19 Memantine HCl 10 mg PO DAILY 01/25/18 04/16/19 Metoprolol Tartrate 50 mg PO DAILY PM 01/25/18 04/16/19 Quetiapine Fumarate [Seroquel] 50 mg PO BID 01/25/18 04/16/19 Sertraline HCl 100 mg PO DAILY 01/25/18 04/16/19 Simvastatin 20 mg PO DAILY 01/25/18 04/16/19 Trazodone HCl 50 mg PO DAILY PM PRN 01/25/18 04/16/19 Cephalexin [Keflex] 500 mg PO Q6H #28 capsule 08/30/18 04/16/19 Haloperidol [Haldol] 2 mg PO BID PRN 09/07/18 04/16/19 Cephalexin [Keflex] 500 mg PO BID #6 capsule 09/08/18 04/16/19 Hydrocodone/Acetaminophen 1 - 2 each PO Q6H PRN #14 tablet 09/09/18 04/16/19 [Hydrocodon-Acetaminophen 5-325] Cetirizine [ZyrTEC] 10 mg PO DAILY #7 tablet 04/16/19 Ferrous Sulfate 325 mg PO DAILY #30 tablet 04/16/19 dexAMETHasone [Decadron] 4 mg PO DAILY #5 tablet 04/16/19 - Allergies Allergies/Adverse Reactions: Allergies Allergy/AdvReac Type Severity Reaction Status Date / Time No Known Drug Allergies Allergy Verified 05/04/19 12:03 - Social History Does the pt smoke?: No Smoking Status: Never smoker Does the pt drink ETOH?: No Does the pt have substance abuse?: No - Immunizations Immunizations are current?: Yes - POLST Patient has POLST: No PD ED PE NORMAL - Vitals Vital signs reviewed: Yes - General General: No acute distress. No: Alert and oriented X 3 (Non verbal, baseline per son), Well developed/nourished (Frail, chronically ill appearing) - HEENT HEENT: Atraumatic, Moist mucous membranes, Other (No epistaxis or evidence of intraoral trauma) - Neck Neck: No bony TTP - Cardiac Cardiac: RRR, No murmur - Respiratory Respiratory: No respiratory distress, Clear bilaterally - Abdomen Abdomen: Normal bowel sounds, Soft, Non tender, Non distended - Back Back: No spinal TTP - Derm Derm: Warm and dry, Other (Scattered ecchymosis over extremities variable age) - Extremities Extremities: No deformity, No tenderness to palpate, Other (Pelvis stable and nontender) - Neuro Neuro: Other (Baseline per son) Results - Vitals Vitals: Vital Signs - 24 hr 05/04/19 05/04/19 11:43 11:54 Temperature 36.6 C 36.4 C L Heart Rate 62 68 Respiratory 18 16 Rate Blood Pressure 114/73 114/74 O2 Saturation 98 96 Oxygen O2 Source Room air PD MEDICAL DECISION MAKING - ED course Complexity details: reviewed results, re-evaluated patient, considered differential, d/w patient, d/w family ED course: Patient presenting with her son with concern for possible left hip pain after witnessed fall while at her nursing facility last night. Son is adamant that patient did not strike her head or lose consciousness. Patient is on anticoagulation, but given presentation, exam, and history, do not have high suspicion for intracranial injury including bleed, concussion, closed injury. Also have lower suspicion for cervical or thoracic but obtained plain films of lumbar spine, as well as pelvis and left hip injuries, as well as do not have high suspicion for extremity, chest or abdominal trauma at this time. Based on patient's mechanism and suppose a reported pain to the area. Nothing found on exam however. Plain films returned without evidence of acute pathology. Discussed results with son and at this time, do not feel patient requires hospitalization or further interventions. Discussed supportive cares, return precautions, appropriate follow-up. Son voiced understanding and is comfortable with discharge plan. Departure - Departure Disposition: 01 Home, Self Care Clinical Impression: Hip pain Qualifiers: Laterality: left Qualified Code(s): M25.552 - Pain in left hip Condition: Good Instructions: ED Mechanical Fall Follow-Up: Dwaine Tafoya PA-C [Primary Care Provider] - Within 3 Days Comments: Please continue home medications as previously instructed. Recommend follow-up with primary care physician in next 2 to 3 days and return to ED sooner if e xperience worsening symptoms or have other concerns.
--- NOTE | 2019-05-04 13:23 | XRAY Report ---
Reason: fell directly onto bottom, left hip pain Procedure Date: 05/04/2019 Accession Number: [id number] / [id number] Procedure: XR - Hip w/Pelvis 2-3V LT CPT Code: FULL RESULT: EXAM: LEFT HIP RADIOGRAPHY EXAM DATE: 05/04/2019 01:01 PM. CLINICAL HISTORY: Dementia. Fell directly onto bottom last night, left hip pain. COMPARISON: None. TECHNIQUE: 2 views. FINDINGS: Bones: Normal. No fractures or bone lesion. Joints: Normal caliber hip joints. Subcortical sclerosis and cyst formation at both normal caliber femoral heads. Marked degenerative disease at L4-L5. Soft Tissues: Normal. No soft tissue swelling. IMPRESSION: 1. No acute bony abnormality. 2. Mild degenerative changes of both hips. RADIA
--- NOTE | 2019-05-04 13:48 | XRAY Report ---
Reason: fell directly onto bottom Procedure Date: 05/04/2019 Accession Number: [id number] / [id number] Procedure: XR - Lumbar Spine 2 View CPT Code: FULL RESULT: EXAM: LUMBOSACRAL SPINE RADIOGRAPHY EXAM DATE: 05/04/2019 01:00 PM. CLINICAL HISTORY: Fell directly onto bottom. Left-sided pain. Dementia. COMPARISONS: None. TECHNIQUE: 3 views. FINDINGS: Alignment: 8 mm degenerative retrolisthesis of L2 on L3. 10 mm degenerative anterior subluxation at L4 and L5. Bones: Five det-ynd-vezryda lumbar vertebral bodies are present. Old mild anterior wedging at T11, T12 and L2. Trabecular and cortical patterns are intact. Disks: Moderate narrowing at L3-L4 and L5-S1. Moderate to marked narrowing at the L2-L3 disk. Facets: No degenerative changes. Sacroiliac Joints: Unremarkable. Soft Tissues: Normal. The visualized bowel gas pattern is normal. IMPRESSION: No acute bony abnormality. RADIA
[2019-05-04 14:14] VITALS: BP 106/94
[2019-05-04] MEDS ORDERED: ACETAMINOPHEN 325 MG TABLET PO STA (14:21)
== END 2019-05-04 14:28 | disposition home or self-care (01) ==
LOC: EDUNIT# → ED 11:46
DX: M25.552 Pain in left hip (principal); W01.0XXA Fall on same level from slipping, tripping and stumbling without subsequent striking against object, initial encounter; Y93.01 Activity, walking, marching and hiking; Y92.129 Unspecified place in nursing home as the place of occurrence of the external cause; M16.0 Bilateral primary osteoarthritis of hip; M48.061 Spinal stenosis, lumbar region without neurogenic claudication; I48.91 Unspecified atrial fibrillation; Z86.73 Personal history of transient ischemic attack (TIA), and cerebral infarction without residual deficits; Z79.01 Long term (current) use of anticoagulants; Z79.82 Long term (current) use of aspirin; F03.90 Unspecified dementia, unspecified severity, without behavioral disturbance, psychotic disturbance, mood disturbance, and anxiety
CPT/HCPCS: 72100; 99282; 99284

== ENCOUNTER 2019-05-05 06:14 | Outpatient (CLI) | payer MEDICARE, MEDICAID | END 2019-05-05 06:15 | disposition critical access hospital (66) | LOC: EMS 06:14 | PROVIDERS: ATTEND Surgery | DX: S01.81XA Laceration without foreign body of other part of head, initial encounter (principal); W18.30XA Fall on same level, unspecified, initial encounter; Z91.81 History of falling; Y92.098 Other place in other non-institutional residence as the place of occurrence of the external cause; Z79.01 Long term (current) use of anticoagulants | CPT/HCPCS: A0425; A0429 ==

== ENCOUNTER 2019-05-05 06:29 | Emergency (ER) | payer MEDICARE, MEDICAID ==
[2019-05-05 06:42] LABS: BASOPHILS % (AUTO) 0.3 %; EOSINOPHILS % (AUTO) 0.2 %; HGB - HEMOGLOBIN 11.1 g/dL (12.0-16.0); LYMPHOCYTES # (AUTO) 0.7 10^3/uL (1.5-3.5); LYMPHOCYTES % (AUTO) 6.2 %; MEAN CORPUSCULAR HEMOGLOBIN 28.3 pg (27.0-31.0); MEAN CORPUSCULAR HGB CONC 30.7 g/dL (32.0-36.0); MEAN CORPUSCULAR VOLUME 92.1 fL (81.0-99.0); MEAN PLATELET VOLUME 10.1 fL (7.9-10.8); MONOCYTES # (AUTO) 0.9 10^3/uL (0.0-1.0); MONOCYTES % (AUTO) 8.6 %; NEUTROPHILS # (AUTO) 8.8 10^3/uL (1.5-6.6); PLT - PLATELET COUNT 213 10^3/uL (130-450); RED BLOOD COUNT 3.92 10^6/uL (4.20-5.40); WHITE BLOOD COUNT 10.5 x10^3/uL (4.8-10.8)
[2019-05-05 06:51] LABS: INR 1.7 (0.8-1.2); PT - PROTHROMBIN TIME 19.3 secs (9.9-12.6)
--- NOTE | 2019-05-05 06:53 | ED Physician Documentation ---
<Rvai Stahl A - Last Filed: 05/05/19 06:51> PD HPI HEAD INJURY - Stated complaint Stated Complaint: GLF - Chief complaint Chief Complaint: Neuro - History obtained from History obtained from: EMS, Caregiver, Other (The patient has significant dementia and does not give much of the history. Reportedly the patient was attempting to get out of bed and usually uses a walker. She was not using it and fell and struck her head when she fell forward. There was some bleeding from a laceration above the left eye. There is a superficial skin tear on the left hand. No apparent chest or abdomen injury.) - History of Present Illness Mechanism of head injury: Fell Where head injury occurred: Other (SNF) Timing - onset: How many minutes ago (30), Today Location of injury: Front Associated symptoms: No: LOC, Nausea / vomiting Contributing factors: Anticoagulated Similar symptoms before: Diagnosis (She does have history of dementia and poor balance and is supposed to use a walker. She has had occasional falls in the past. She had one yesterday with some injury to the left hip with negative x- rays.) Recently seen: Emergency Dept (yesterday for other fall the day prior and some apparent hip pain.) Review of Systems Unable to obtain: Dementia PD PAST MEDICAL HISTORY - Past Medical History Cardiovascular: Coronary artery disease, [place], Atrial fibrillation Respiratory: COPD Neuro: Dementia, CVA - Past Surgical History Past Surgical History: Yes Cardiovascular: Pacemaker - Present Medications Home Medications: Ambulatory Orders Medication Instructions Recorded Confirmed Apixaban [Eliquis] 5 mg PO BID 01/25/18 05/05/19 Aspirin 81 mg PO BID 01/25/18 05/05/19 Digoxin 0.5 tab PO DAILY 01/25/18 05/05/19 Donepezil HCl [Donepezil HCl Odt] 10 mg PO DAILY 01/25/18 05/05/19 Levothyroxine Sodium 75 mcg PO DAILY 01/25/18 05/05/19 Metoprolol Tartrate 50 mg PO DAILY PM 01/25/18 05/05/19 Quetiapine Fumarate [Seroquel] 50 mg PO BID 01/25/18 05/05/19 Sertraline HCl 100 mg PO DAILY 01/25/18 05/05/19 Simvastatin 20 mg PO DAILY 01/25/18 05/05/19 Trazodone HCl 50 mg PO DAILY PM PRN 01/25/18 05/05/19 Haloperidol [Haldol] 2 mg PO BID PRN 09/07/18 05/05/19 Cetirizine [ZyrTEC] 10 mg PO DAILY #7 tablet 04/16/19 05/05/19 Ferrous Sulfate 325 mg PO DAILY #30 tablet 04/16/19 05/05/19 - Allergies Allergies/Adverse Reactions: Allergies Allergy/AdvReac Type Severity Reaction Status Date / Time No Known Drug Allergies Allergy Verified 05/04/19 12:03 - Social History Does the pt smoke?: No Smoking Status: Never smoker Does the pt drink ETOH?: No Does the pt have substance abuse?: No - Immunizations Immunizations are current?: Yes - POLST Patient has POLST: No PD ED PE NORMAL - Vitals Vital signs reviewed: Yes - General General: No: Alert and oriented X 3 (opens eyes to command, and moans on palpation of forehead lac. No apparent tenderness in chest/neck/abd nor extremities on palpation and movement. ) - HEENT HEENT: EOMI, Other (laceration above left eyebrow. ) - Neck Neck: No bony TTP, No adenopathy - Cardiac Cardiac: RRR, No murmur - Respiratory Respiratory: Clear bilaterally, Other (no apparent chestwall tenderness. ) - Abdomen Abdomen: Soft, Non tender - Back Back: No CVA TTP, No spinal TTP - Derm Derm: Normal color, Warm and dry - Extremities Extremities: Other (All extremities have good passive range of motion without any moaning or apparent guarding of motion. There is a partial-thickness skin tear along the dorsal radial side of the base of the left index finger. Bandaging will be applied.) - Neuro Neuro: No motor deficit. No: Alert and oriented X 3 Results - Rads (name of study) head CT Radiology: Prelim report reviewed, EMP read contemporaneously (no acute ICH.), See rad report cervical CT Radiology: Prelim report reviewed, See rad report PD MEDICAL DECISION MAKING - ED course Complexity details: considered differential (fall trip and struck head, on anticoag. Will get head and neck CT.) Departure - Departure Disposition: 01 Home, Self Care Clinical Impression: Anticoagulant long-term use Fall from slip, trip, or stumble Qualifiers: Encounter type: initial encounter Qualified Code(s): W01.0XXA - Fall on same level from slipping, tripping and stumbling without subsequent striking against object, initial encounter Forehead laceration Qualifiers: Encounter type: initial encounter Qualified Code(s): S01.81XA - Laceration without foreign body of other part of head, initial encounter Condition: Stable Record reviewed to determine appropriate education?: Yes Instructions: ED Head Injury Closed, ED Laceration Face Sutr Tape Ch Follow-Up: Dwaine Tafoya PA-C [Primary Care Provider] - Comments: Your CT head and neck today were negative for injury. You had a repair performed of your forehead laceration. Have your sutures removed in 5 days. Return sooner if signs of infection - redness, purulent discharge, worsening swelling or fever. <Queenie Carmichael - Last Filed: 05/05/19 09:08> PD ED PE EXPANDED - Derm Derm: Laceration(s) (large approximately 6cm left forehead laceration, irregular and full thickness ) Results - Vitals Vitals: Vital Signs - 24 hr 05/05/19 05/05/19 05/05/19 06:29 07:01 07:10 Temperature 36.3 C L Heart Rate 63 84 Respiratory 16 20 Rate Blood Pressure 103/47 L 76/43 L O2 Saturation 93 91 L 89 L 05/05/19 05/05/19 07:12 07:44 Temperature Heart Rate 75 80 Respiratory 23 16 Rate Blood Pressure 80/46 L 86/52 L O2 Saturation 96 99 Oxygen O2 Source Room air Oxygen Flow Rate 2 - Labs Labs: Laboratory Tests 05/05/19 05/05/19 05/05/19 06:30 06:30 06:30 WBC 10.5 RBC 3.92 L Hgb 11.1 L Hct 36.1 L MCV 92.1 MCH 28.3 MCHC 30.7 L RDW 20.0 H Plt Count 213 MPV 10.1 Neut # (Auto) 8.8 H Lymph # (Auto) 0.7 L [place] # (Auto) 0.9 Eos # (Auto) 0.0 Baso # (Auto) 0.0 Absolute Nucleated RBC 0.00 Nucleated RBC % 0.0 PT 19.3 H INR 1.7 H APTT 30.7 Sodium 141 Potassium 3.8 Chloride 102 Carbon Dioxide 22 Anion Gap 17.0 H BUN 34 H Creatinine 1.3 H Estimated GFR (MDRD) 40 L Glucose 177 H Calcium 9.4 Magnesium 2.1 Total Bilirubin 1.2 H AST 39 ALT 33 Alkaline Phosphatase 82 Total Protein 7.1 Albumin 3.7 Globulin 3.4 Albumin/Globulin Ratio 1.1 Lipase 24 - Rads (name of study) head CT Radiology: Other (no acute injury or changes) cervical CT Radiology: Other (negative for acute injury, old DJD and anterolithesis) Procedures - Laceration (location) Face left Wound type: Irregular, Other (full thickness) Neurovascular status: Sensory intact, Motor intact Anesthesia: Lidocaine 2% with epi (supraorbital block with 4cc) Wound Preparation: Irrigated copiously NS Skin layer closure: Nylon, Size #-0 - enter number (6-0), Sutures - enter # (13) Other: Patient tolerated well, No complications, Neurovascular intact, Dressing applied, Tetanus booster given Complexity: Intermediate - Regional nerve block Nerve block site: Supraorbital/trochlear Right / left: Left Nerve block anesthesia: Lidocaine 2% (with epi) Nerve block aftercare: Excellent anesthesia, No complications PD MEDICAL DECISION MAKING - ED course Complexity details: reviewed results, re-evaluated patient ED course: ddx - concussion, intracranial injury, cva, laceration, Cspine injury, neck sprain 78 y/o F with hx and exam as documented. CT head and Cspine neg. Pt with stable labs. She has a L forehead laceration which was repaired by me. She is at her baseline mental status and is stable for discharge back to her memory care facility. Departure - Departure Record reviewed to determine appropriate education?: Yes
[2019-05-05 06:56] LABS: CALCIUM 9.4 mg/dL (8.5-10.3); CREATININE 1.3 mg/dL (0.4-1.0); MAGNESIUM 2.1 mg/dL (1.7-2.8)
[2019-05-05 06:57] LABS: ALBUMIN 3.7 g/dL (3.2-5.5); ALBUMIN/GLOBULIN RATIO 1.1 (1.0-2.2); BILIRUBIN,TOTAL 1.2 mg/dL (0.2-1.0); TOTAL PROTEIN 7.1 g/dL (6.7-8.2)
[2019-05-05 06:58] LABS: PARTIAL THROMBOPLASTIN TIME 30.7 secs (24.9-33.3)
[2019-05-05] MEDS ORDERED: SODIUM CHLORIDE 0.9% 1,000 ML IV ONE ×2 (07:02)
--- NOTE | 2019-05-05 07:13 | CT Report ---
Reason: fell while walking; struck frontal head Procedure Date: 05/05/2019 Accession Number: [id number] / [id number] Procedure: CT - HEAD WO CPT Code: FULL RESULT: EXAM: CT HEAD EXAM DATE: 05/05/2019 06:52 AM. CLINICAL HISTORY: Fell while walking; struck frontal head. Abrasion, soft tissue swelling COMPARISON: CERVICAL SPINE W/O 09/09/2018 6:33 PM HEAD W/O 09/09/2018 6:33 PM. TECHNIQUE: Multiaxial CT images were obtained from the foramen magnum to the vertex. Reformats: Sagittal and coronal. IV contrast: None. In accordance with CT protocol optimization, one or more of the following dose reduction techniques were utilized for this exam: automated exposure control, adjustment of mA and/or KV based on patient size, or use of iterative reconstructive technique. FINDINGS: Parenchyma: No intraparenchymal hemorrhage. No evidence of mass, midline shift, or CT findings of acute infarction. Old right frontal infarct Webber-white differentiation is distinct. Diffuse chronic microangiopathic white matter changes are evident. Extraaxial Spaces: Normal for age. No subdural or epidural collections identified. Ventricles: The ventricles and cortical sulci are enlarged, consistent with age-related tissue loss. Sinuses and orbits: Fluid in right mastoid air cells again visualized. Imaged paranasal sinuses, orbits, show no significant abnormality. Bones: No evidence of fracture or calvarial defect. Other: None. IMPRESSION: Generalized age-related cortical atrophic changes without evidence of acute intracranial abnormality. Old right frontal infarct RADIA
[2019-05-05] MEDS ORDERED: LIDOCAINE 2%-EPI 1:100000 20 ML MDV SUBQ STA (07:32)
[2019-05-05] MEDS ORDERED: TETANUS/DIPHTHERIA/PERTUSSIS 0.5 ML SYRINGE IM ONE (07:32)
--- NOTE | 2019-05-05 07:34 | CT Report ---
Reason: fell while walking; struck head Procedure Date: 05/05/2019 Accession Number: [id number] / [id number] Procedure: CT - CERVICAL SPINE WO CPT Code: FULL RESULT: EXAM: CT CERVICAL SPINE WITHOUT CONTRAST DATE: 05/05/2019 06:52 AM. HISTORY: Fell while walking; struck head. COMPARISONS: CERVICAL SPINE W/O 09/09/2018 6:33 PM. TECHNIQUE: Thin-section axial images were acquired of the cervical spine without contrast. Post-processing: Coronal and sagittal reformats. Other: None. In accordance with CT protocol optimization, one or more of the following dose reduction techniques were utilized for this exam: automated exposure control, adjustment of mA and/or KV based on patient size, or use of iterative reconstructive technique. FINDINGS: Alignment: Stable grade 1 anterolisthesis C7 on T1 Bones: No fracture or bone lesion. Interspace Levels/Facets: Osteophyte and disk space narrowing from C3-C4 through C7-T1. Bilateral scattered facet arthropathy. Uncovertebral osteophytes C3-C4 with left neuroforaminal narrowing. C4-C5 uncovertebral osteophyte with bilateral neural foraminal narrowing. C5-C6 uncovertebral osteophyte with bilateral neuroforaminal narrowing. Musculature: Normal. No fatty atrophy. Other: The paravertebral and prevertebral soft tissues are unremarkable. The lung apices are clear. Fluid in right mastoid air cells IMPRESSION: 1. Severe DJD. 2. Chronic grade 1 anterolisthesis C7 on T1 RADIA
[2019-05-05] MEDS ORDERED: LIDOCAINE 1%-EPI 1:100000 20 ML MDV ONE (07:47)
[2019-05-05 11:35] VITALS: BP 108/59
== END 2019-05-05 11:34 | disposition home or self-care (01) ==
LOC: EDUNIT# → ED 06:29
DX: S01.81XA Laceration without foreign body of other part of head, initial encounter (principal); S61.412A Laceration without foreign body of left hand, initial encounter; F03.90 Unspecified dementia, unspecified severity, without behavioral disturbance, psychotic disturbance, mood disturbance, and anxiety; W01.0XXA Fall on same level from slipping, tripping and stumbling without subsequent striking against object, initial encounter; Y93.89 Activity, other specified; Y92.003 Bedroom of unspecified non-institutional (private) residence as the place of occurrence of the external cause; Z79.01 Long term (current) use of anticoagulants
CPT/HCPCS: 12053; 36415; 70450; 72125; 80053; 83690; 83735; 85025; 85610; 85730; 90471; 96360; 96361

== ENCOUNTER 2019-05-11 23:09 | Outpatient (CLI) | payer MEDICARE, MEDICAID | END 2019-05-11 23:10 | disposition critical access hospital (66) | LOC: EMS 23:09 | PROVIDERS: ATTEND Surgery | DX: R07.89 Other chest pain (principal) | CPT/HCPCS: A0425; A0429 ==

== ENCOUNTER 2019-05-11 23:27 | Emergency (ER) | payer MEDICARE, MEDICAID ==
--- NOTE | 2019-05-11 23:31 | ED Physician Documentation ---
PD HPI CHEST PAIN - Stated complaint Stated Complaint: CP WITH PALPITATIONS - History obtained from History obtained from: Patient, EMS, Caregiver - History of Present Illness Timing - onset: Today Timing - onset during: Rest Timing - duration: Hours Timing - details: Abrupt onset, Still present Quality: Sharp, Pain Location: Left chest Radiation: No: Jaw, Neck, Back, Abdominal, Left upper extremity, Right upper extremity Improved by: Rest Worsened by: Inspiration, Movement, Palpation Associated symptoms: No: Shortness of air, Diaphoresis, Nausea, Feeling faint / dizzy, General Weakness Similar symptoms before: Has not had sx before Recently seen: Emergency Dept - Additional information Additional information: 78 y/o female with a recent fall 6 and 7 days ago. She was seen and evaluated for both of these falls one was witnessed the other was not. There was a right frontal laceration on the second fall and this was repaired. There is no direct history of either of these falls involving the chest wall. The patient has advanced dementia and is not able to help with the history except to acknowledge pain with palpation of the chest wall reproducing the symptoms she is having. This pain was apparently discovered today while repositioning the patient. Review of Systems Unable to obtain: Dementia Constitutional: denies: Fever Cardiac: reports: Chest pain / pressure Respiratory: denies: Dyspnea GI: denies: Vomiting PD PAST MEDICAL HISTORY - Past Medical History Cardiovascular: Coronary artery disease, [place], Atrial fibrillation Respiratory: COPD Neuro: Dementia, CVA - Past Surgical History Past Surgical History: Yes Cardiovascular: Pacemaker - Present Medications Home Medications: Ambulatory Orders Medication Instructions Recorded Confirmed Apixaban [Eliquis] 5 mg PO BID 01/25/18 05/05/19 Aspirin 81 mg PO BID 01/25/18 05/05/19 Digoxin 0.5 tab PO DAILY 01/25/18 05/05/19 Donepezil HCl [Donepezil HCl Odt] 10 mg PO DAILY 01/25/18 05/05/19 Levothyroxine Sodium 75 mcg PO DAILY 01/25/18 05/05/19 Metoprolol Tartrate 50 mg PO DAILY PM 01/25/18 05/05/19 Quetiapine Fumarate [Seroquel] 50 mg PO BID 01/25/18 05/05/19 Sertraline HCl 100 mg PO DAILY 01/25/18 05/05/19 Simvastatin 20 mg PO DAILY 01/25/18 05/05/19 Trazodone HCl 50 mg PO DAILY PM PRN 01/25/18 05/05/19 Haloperidol [Haldol] 2 mg PO BID PRN 09/07/18 05/05/19 Cetirizine [ZyrTEC] 10 mg PO DAILY #7 tablet 04/16/19 05/05/19 Ferrous Sulfate 325 mg PO DAILY #30 tablet 04/16/19 05/05/19 - Allergies Allergies/Adverse Reactions: Allergies Allergy/AdvReac Type Severity Reaction Status Date / Time No Known Drug Allergies Allergy Verified 05/04/19 12:03 - Social History Does the pt smoke?: No Smoking Status: Never smoker Does the pt drink ETOH?: No Does the pt have substance abuse?: No - Immunizations Immunizations are current?: Yes - POLST Patient has POLST: No PD ED PE NORMAL - Vitals Vital signs reviewed: Yes (hypertensive ) - General General: No acute distress, Well developed/nourished, Other (confused) - HEENT HEENT: PERRL, EOMI, Other (There is a healing bruise and laceration to the left forehead and the bandaging is not removed. 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, No motor deficit, No sensory deficit, Normal speech Eye Opening: Spontaneous Motor: Obeys Commands Verbal: Confused GCS Score: 14 - Psych Psych: Normal mood, Normal affect Results - Vitals Vitals: Vital Signs - 24 hr 05/11/19 05/12/19 23:28 01:29 Temperature 36.9 C 37.2 C Heart Rate 64 66 Respiratory 12 16 Rate Blood Pressure 138/75 H 140/80 H O2 Saturation 93 96 Oxygen O2 Source Room air - EKG (time done) 2328 Rate: Rate (enter#) (69) Rhythm: Paced Compare to prior EKG: Changed from prior EKG (SPT 09-06-18 rhythm is now completely paced) Computer interpretation: Agree with computer - Labs Labs: Laboratory Tests 05/11/19 05/11/19 05/11/19 23:50 23:50 23:50 WBC 7.3 RBC 3.32 L Hgb 9.4 L Hct 31.7 L MCV 95.5 MCH 28.3 MCHC 29.7 L RDW 20.9 H Plt Count 256 MPV 10.2 Neut # (Auto) 4.9 Lymph # (Auto) 1.3 L Josephine # (Auto) 0.8 Eos # (Auto) 0.2 Baso # (Auto) 0.0 Absolute Nucleated RBC 0.00 Nucleated RBC % 0.0 Manual Slide Review Indicated Platelet Estimate NORMAL (130-450,000) RBC Morph Micro Appear 1+ OVALOCYTES Sodium 143 Potassium 4.4 Chloride 108 Carbon Dioxide 23 Anion Gap 12.0 BUN 41 H Creatinine 1.1 H Estimated GFR (MDRD) 48 L Glucose 107 H Calcium 9.1 Total Bilirubin 0.9 AST 26 ALT 30 Alkaline Phosphatase 86 Troponin I < 0.04 Troponin I High Sens 20.1 H* Total Protein 6.6 L Albumin 3.4 Globulin 3.2 Albumin/Globulin Ratio 1.1 Lipase 25 Urine Color Urine Clarity Urine pH Ur Specific [place] Urine Protein Urine Glucose (UA) Urine Ketones Urine Occult Blood Urine Nitrite Urine Bilirubin Urine Urobilinogen Ur Leukocyte Esterase Ur Microscopic Review Urine Culture Comments 05/11/19 23:50 WBC RBC Hgb Hct MCV MCH MCHC RDW Plt Count MPV Neut # (Auto) Lymph # (Auto) Josephine # (Auto) Eos # (Auto) Baso # (Auto) Absolute Nucleated RBC Nucleated RBC % Manual Slide Review Platelet Estimate RBC Morph Micro Appear Sodium Potassium Chloride Carbon Dioxide Anion Gap BUN Creatinine Estimated GFR (MDRD) Glucose Calcium Total Bilirubin AST ALT Alkaline Phosphatase Troponin I Troponin I High Sens Total Protein Albumin Globulin Albumin/Globulin Ratio Lipase Urine Color YELLOW Urine Clarity CLEAR Urine pH 5.5 Ur Specific [place] 1.025 Urine Protein NEGATIVE Urine Glucose (UA) NEGATIVE Urine Ketones NEGATIVE Urine Occult Blood NEGATIVE Urine Nitrite NEGATIVE Urine Bilirubin NEGATIVE Urine Urobilinogen 0.2 (NORMAL) Ur Leukocyte Esterase NEGATIVE Ur Microscopic Review NOT INDICATED Urine Culture Comments NOT INDICATED - Rads (name of study) chest 2 view Radiology: Prelim report reviewed (Impression: No acute infiltrates.), EMP read indepedently, See rad report PD MEDICAL DECISION MAKING - ED course Complexity details: reviewed old records, reviewed results, re-evaluated patient, considered differential, d/w patient ED course: 78-year-old female with advanced dementia who is comfort measures only has chest wall pain and the timing is good for this being related to a recent fall. She has no obvious bruising to the chest wall she does have a specific area of tenderness that reproduces her symptoms. She has no other specific findings on evaluation. Departure - Departure Disposition: 01 Home, Self Care Clinical Impression: Chest wall pain Instructions: ED Contusion Chest Wall Follow-Up: Dwaine Tafoya PA-C [Primary Care Provider] - Discharge Date/Time: 05/12/19 02:48
[2019-05-11 23:59] LABS: BASOPHILS % (AUTO) 0.6 %; EOSINOPHILS # (AUTO) 0.2 10^3/uL (0.0-0.7); EOSINOPHILS % (AUTO) 2.3 %; HGB - HEMOGLOBIN 9.4 g/dL (12.0-16.0); LYMPHOCYTES # (AUTO) 1.3 10^3/uL (1.5-3.5); MEAN CORPUSCULAR HEMOGLOBIN 28.3 pg (27.0-31.0); MEAN CORPUSCULAR HGB CONC 29.7 g/dL (32.0-36.0); MEAN CORPUSCULAR VOLUME 95.5 fL (81.0-99.0); MEAN PLATELET VOLUME 10.2 fL (7.9-10.8); MONOCYTES # (AUTO) 0.8 10^3/uL (0.0-1.0); MONOCYTES % (AUTO) 11.3 %; NEUTROPHILS # (AUTO) 4.9 10^3/uL (1.5-6.6); NEUTROPHILS % (AUTO) 67.4 %; PLT - PLATELET COUNT 256 10^3/uL (130-450); RED BLOOD COUNT 3.32 10^6/uL (4.20-5.40); RED CELL DISTRIBUTION WIDTH 20.9 % (12.0-15.0); WHITE BLOOD COUNT 7.3 x10^3/uL (4.8-10.8)
[2019-05-12] LABS: BILIRUBIN,URINE NEGATIVE (NEGATIVE); GLUCOSE, URINE (UA) NEGATIVE (NEGATIVE); KETONES,URINE (UA) NEGATIVE (NEGATIVE); LEUKOCYTE ESTERASE, URINE NEGATIVE (NEGATIVE); NITRITE,URINE NEGATIVE (NEGATIVE); OCCULT BLOOD,URINE NEGATIVE (NEGATIVE); PH,URINE 5.5 PH (5.0-7.5); PROTEIN,URINE NEGATIVE (NEGATIVE); UROBILINOGEN,URINE 0.2 (NORMAL) E.U./dL (NORMAL)
[2019-05-12 00:02] LABS: CLARITY,URINE CLEAR (CLEAR)
[2019-05-12 00:12] LABS: ALBUMIN 3.4 g/dL (3.2-5.5); ALBUMIN/GLOBULIN RATIO 1.1 (1.0-2.2); BILIRUBIN,TOTAL 0.9 mg/dL (0.2-1.0); CALCIUM 9.1 mg/dL (8.5-10.3); CREATININE 1.1 mg/dL (0.4-1.0); TOTAL PROTEIN 6.6 g/dL (6.7-8.2)
[2019-05-12 00:22] LABS: PLATELET ESTIMATE, MANUAL NORMAL (130-450,000) (NORMAL)
--- NOTE | 2019-05-12 00:30 | XRAY Report ---
Reason: anterior chest pain Procedure Date: 05/12/2019 Accession Number: [id number] / [id number] Procedure: XR - Chest 2 View X-Ray CPT Code: 67944 FULL RESULT: EXAM: CHEST RADIOGRAPHY EXAM DATE: 05/12/2019 12:19 AM. CLINICAL HISTORY: Anterior chest pain. COMPARISON: CHEST 1 VIEW 09/07/2018 11:54 AM. TECHNIQUE: 2 views. FINDINGS: Lungs/Pleura: No focal opacities evident. No pleural effusion. No pneumothorax. Normal volumes. Mediastinum: Heart and mediastinal contours are unremarkable. Other: There is a pacemaker on the left with one intact lead. IMPRESSION: No acute infiltrates. RADIA
[2019-05-12 00:35] LABS: TROPONIN I < 0.04 ng/mL (<0.49)
[2019-05-12 01:29] VITALS: BP 140/80
== END 2019-05-12 02:48 | disposition home or self-care (01) ==
LOC: EDUNIT# → ED 23:27
DX: R07.89 Other chest pain (principal); Z91.81 History of falling; F03.90 Unspecified dementia, unspecified severity, without behavioral disturbance, psychotic disturbance, mood disturbance, and anxiety; I25.10 Atherosclerotic heart disease of native coronary artery without angina pectoris; I25.2 Old myocardial infarction; Z95.0 Presence of cardiac pacemaker; Z86.73 Personal history of transient ischemic attack (TIA), and cerebral infarction without residual deficits; Z79.01 Long term (current) use of anticoagulants; Z79.82 Long term (current) use of aspirin
CPT/HCPCS: 36415; 71046; 80053; 81001; 81003; 83690; 84484; 85025; 87086; 93005; 99284

== ENCOUNTER 2019-05-12 | Outpatient (CLI) | payer MEDICARE, MEDICAID | END 2019-05-12 02:50 | disposition home or self-care (01) | DX: R07.9 Chest pain, unspecified (principal); G30.9 Alzheimer's disease, unspecified; F02.80 Dementia in other diseases classified elsewhere, unspecified severity, without behavioral disturbance, psychotic disturbance, mood disturbance, and anxiety | CPT/HCPCS: A0425; A0428 ==

== ENCOUNTER 2019-07-01 20:04 | Outpatient (CLI) | payer MEDICARE, MEDICAID | END 2019-07-01 20:05 | disposition critical access hospital (66) | LOC: EMS 20:04 | PROVIDERS: ATTEND Surgery | DX: T76.21XA Adult sexual abuse, suspected, initial encounter (principal) | CPT/HCPCS: A0425; A0429 ==

== ENCOUNTER 2019-07-01 20:41 | Emergency (ER) | payer OTHER, MEDICARE, MEDICAID ==
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
[2019-07-01 21:01] VITALS: BP 134/74
[2019-07-01] MEDS ORDERED: AZITHROMYCIN 250 MG TABLET PO STA (22:11)
[2019-07-01] MEDS ORDERED: cefTRIAXone 250 MG VIAL IM ONE (22:11)
[2019-07-01] MEDS ORDERED: LIDOCAINE 1% 2 ML VIAL MC ONE (22:11)
[2019-07-04 13:23] LABS: HEPATITIS B SURFACE ANTIGEN NON-REACTIVE (NON-REACTIVE); HEPATITIS C ANTIBODY NON-REACTIVE (NON-REACTIVE)
[2019-07-04 16:37] LABS: HIV AG/AB 4TH GEN NON-REACTIVE (NON-REACTIVE)
== END 2019-07-02 01:37 | disposition home or self-care (01) ==
LOC: EDUNIT# → ED 20:41
DX: T76.21XA Adult sexual abuse, suspected, initial encounter (principal); F03.90 Unspecified dementia, unspecified severity, without behavioral disturbance, psychotic disturbance, mood disturbance, and anxiety
CPT/HCPCS: 0133C; 36415; 86803; 87340; 87389; 96372; A9270; 87491; 87591; 87661; 87801

== ENCOUNTER 2019-07-02 00:58 | Outpatient (CLI) | payer MEDICARE, MEDICAID | END 2019-07-02 00:59 | disposition home or self-care (01) | LOC: EMS 00:58 | PROVIDERS: ATTEND Surgery | DX: F03.90 Unspecified dementia, unspecified severity, without behavioral disturbance, psychotic disturbance, mood disturbance, and anxiety (principal) | CPT/HCPCS: A0425; A0428 ==

== ENCOUNTER 2019-10-10 22:29 | Emergency (ER) | payer MEDICARE, MEDICAID ==
--- NOTE | 2019-10-10 22:37 | ED Physician Documentation ---
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 No reported LOC. Patient's baseline is both demented and nonverbal, so HPI and ROS is limited to other sources of information. She has a POLST form indicating DNR, comfort measures only Review of Systems Unable to obtain: Dementia, Other (nonverbal (baseline)) PD PAST MEDICAL HISTORY - Past Medical History Cardiovascular: Coronary artery disease, [place], Atrial fibrillation Respiratory: COPD Neuro: Dementia, CVA GI: Chronic constipation Psych: Other Musculoskeletal: Fatigue - Past Surgical History Past Surgical History: Yes Cardiovascular: Pacemaker - Present Medications Home Medications: Ambulatory Orders Medication Instructions Recorded Confirmed Apixaban [Eliquis] 5 mg PO BID 01/25/18 10/10/19 Aspirin 81 mg PO BID 01/25/18 10/10/19 Digoxin 0.5 tab PO DAILY 01/25/18 10/10/19 Levothyroxine Sodium 75 mcg PO DAILY 01/25/18 10/10/19 Quetiapine Fumarate [Seroquel] 50 mg PO BID 01/25/18 10/10/19 Sertraline HCl 100 mg PO DAILY 01/25/18 10/10/19 haloperidoL [Haldol] 2 mg PO BID PRN 09/07/18 10/10/19 Ferrous Sulfate 325 mg PO DAILY #30 tablet 04/16/19 10/10/19 - Allergies Allergies/Adverse Reactions: Allergies Allergy/AdvReac Type Severity Reaction Status Date / Time No Known Drug Allergies Allergy Verified 10/10/19 22:39 - Social History Does the pt smoke?: No Smoking Status: Never smoker Does the pt drink ETOH?: No Does the pt have substance abuse?: No - Immunizations Immunizations are current?: Yes - POLST Patient has POLST: No PD ED PE NORMAL - Vitals Vital signs reviewed: Yes - General General: No acute distress, Well developed/nourished, Other (opens eyes s pontaneously, follows few commands. does not verbally communicate. NAD) - HEENT HEENT: Moist mucous membranes - Neck Neck: No bony TTP (difficult to assess if tender to palpation: nonverbal, but does not appear to wince or otherwise react when I palpate posterior cervical spine) - Cardiac Cardiac: RRR - Respiratory Respiratory: No respiratory distress, Clear bilaterally - Derm Derm: Normal color, Warm and dry - Extremities Extremities: No tenderness to palpate, Normal ROM s pain, No edema PD ED PE EXPANDED - HEENT HEENT Visual: 1 - bruising, swelling - Cardiac Cardiac: Murmur Present (2/6 ROSALVA greatest left 2nd ICS) - Extremities Extremities: Other (skin tear to right hand, dorsal surface of first webspace. skin tear to right FA, flexor surface) Results - Vitals Vitals: Vital Signs - 24 hr 10/10/19 10/11/19 10/11/19 22:30 00:57 02:11 Temperature 36.5 C 36.5 C Heart Rate 66 69 75 Respiratory 18 16 16 Rate Blood Pressure 155/76 H 121/69 132/58 H O2 Saturation 98 95 98 Oxygen O2 Source Room air - Rads (name of study) CT head Radiology: Prelim report reviewed, See rad report CT cervical spine Radiology: Prelim report reviewed, See rad report PD MEDICAL DECISION MAKING - ED course Complexity details: reviewed old records, reviewed results, re-evaluated patient, considered differential Departure - Departure Disposition: 01 Home, Self Care Clinical Impression: Fall Condition: Good Instructions: ED Mechanical Fall, ED Avulsion Dermal Discharge Date/Time: 10/11/19 02:25
--- NOTE | 2019-10-10 23:39 | CT Report ---
Reason: fall, head injury, nonverbal Procedure Date: 10/10/2019 Accession Number: [id number] / [id number] Procedure: CT - CERVICAL SPINE WO CPT Code: Final Report FULL RESULT: EXAM: CT CERVICAL SPINE WITHOUT CONTRAST DATE: 10/10/2019 11:04 PM. HISTORY: Fall, head injury, nonverbal. COMPARISONS: CERVICAL SPINE W/O 05/05/2019 6:49 AM. TECHNIQUE: Thin-section axial images were acquired of the cervical spine without contrast. Post-processing: Coronal and sagittal reformats. Other: None. In accordance with CT protocol optimization, one or more of the following dose reduction techniques were utilized for this exam: automated exposure control, adjustment of mA and/or KV based on patient size, or use of iterative reconstructive technique. FINDINGS: Alignment: Grade 1 degenerative spondylolisthesis at C7-T1 and T1-T2 is unchanged. Bones: Osteopenia. No acute fracture is seen. Interspace Levels/Facets: Multilevel degenerative disk disease and degenerative joint disease appears stable compared with the prior exam. Other: No prevertebral soft tissue swelling. Bilateral carotid artery calcifications. The lung apices are clear. IMPRESSION: 1. Osteopenia and degenerative changes. 2. No acute abnormality and no significant change. RADIA
--- NOTE | 2019-10-10 23:41 | CT Report ---
Reason: fall, head injury, on blood thinner Procedure Date: 10/10/2019 Accession Number: [id number] / [id number] Procedure: CT - HEAD WO CPT Code: Final Report FULL RESULT: EXAM: CT HEAD EXAM DATE: 10/10/2019 11:02 PM. CLINICAL HISTORY: Fall, head injury, on blood thinner. COMPARISON: HEAD W/O 05/05/2019 6:47 AM. TECHNIQUE: Multiaxial CT images were obtained from the foramen magnum to the vertex. Reformats: Sagittal and coronal. IV contrast: None. In accordance with CT protocol optimization, one or more of the following dose reduction techniques were utilized for this exam: automated exposure control, adjustment of mA and/or KV based on patient size, or use of iterative reconstructive technique. FINDINGS: Parenchyma: No intraparenchymal hemorrhage. No evidence of mass, midline shift, or CT findings of infarction. Webber-white differentiation is distinct. Encephalomalacia is again noted in the right frontal lobe consistent with a previous infarct, unchanged. Mild periventricular hypodensity is noted, nonspecific but most likely due to chronic microvascular ischemia. Extraaxial Spaces: Normal for age. No subdural or epidural collections identified. Ventricles: Normal in size and position. Sinuses and Orbits: Minimal right mastoid effusion is noted, which appears chronic and unchanged. The paranasal sinuses are essentially clear. The orbits are unremarkable. Bones: No evidence of fracture or calvarial defect. Other: Mild frontal soft tissue swelling is noted. Vascular calcification is visualized in the cavernous segments of the bilateral ICAs. IMPRESSION: 1. Right frontal soft tissue swelling. No evidence of underlying fracture or acute intracranial hemorrhage. 2. Stable right frontal lobe encephalomalacia consistent with a previous infarct. 3. Stable mild white matter changes typical of chronic microvascular ischemia. RADIA
[2019-10-11 02:12] VITALS: BP 132/58
== END 2019-10-11 02:25 | disposition home or self-care (01) ==
LOC: EDUNIT# → ED 22:29
DX: S09.90XA Unspecified injury of head, initial encounter (principal); S00.83XA Contusion of other part of head, initial encounter; S61.411A Laceration without foreign body of right hand, initial encounter; S51.811A Laceration without foreign body of right forearm, initial encounter; W01.0XXA Fall on same level from slipping, tripping and stumbling without subsequent striking against object, initial encounter; Y92.89 Other specified places as the place of occurrence of the external cause; M50.30 Other cervical disc degeneration, unspecified cervical region; M43.13 Spondylolisthesis, cervicothoracic region; M85.88 Other specified disorders of bone density and structure, other site; R01.1 Cardiac murmur, unspecified; I48.91 Unspecified atrial fibrillation; Z79.01 Long term (current) use of anticoagulants; Z79.82 Long term (current) use of aspirin; F03.90 Unspecified dementia, unspecified severity, without behavioral disturbance, psychotic disturbance, mood disturbance, and anxiety; Z66 Do not resuscitate
CPT/HCPCS: 70450; 72125; 99281; 99284

== ENCOUNTER 2019-10-11 02:17 | Outpatient (CLI) | payer MEDICARE, MEDICAID | END 2019-10-11 02:18 | disposition home or self-care (01) | LOC: EMS 02:17 | PROVIDERS: ATTEND Surgery | DX: S00.93XA Contusion of unspecified part of head, initial encounter (principal); W19.XXXA Unspecified fall, initial encounter; F03.90 Unspecified dementia, unspecified severity, without behavioral disturbance, psychotic disturbance, mood disturbance, and anxiety; I69.920 Aphasia following unspecified cerebrovascular disease | CPT/HCPCS: A0425; A0429 ==

== ENCOUNTER 2019-10-13 23:18 | Outpatient (CLI) | payer MEDICARE, MEDICAID | END 2019-10-13 23:59 | disposition critical access hospital (66) | LOC: EMS 23:18 | PROVIDERS: ATTEND Surgery | DX: T14.90XA Injury, unspecified, initial encounter (principal); R40.2411 Glasgow coma scale score 13-15, in the field [EMT or ambulance]; W06.XXXA Fall from bed, initial encounter; Y92.032 Bedroom in apartment as the place of occurrence of the external cause | CPT/HCPCS: A0425; A0429 ==

== ENCOUNTER 2019-10-13 23:33 | Emergency (ER) | payer MEDICARE, MEDICAID ==
[2019-10-14 00:08] LABS: BASOPHILS % (AUTO) 0.4 %; EOSINOPHILS # (AUTO) 0.1 10^3/uL (0.0-0.7); EOSINOPHILS % (AUTO) 2.2 %; HGB - HEMOGLOBIN 12.3 g/dL (12.0-16.0); LYMPHOCYTES # (AUTO) 1.6 10^3/uL (1.5-3.5); LYMPHOCYTES % (AUTO) 29.5 %; MEAN CORPUSCULAR HEMOGLOBIN 33.8 pg (27.0-31.0); MEAN CORPUSCULAR HGB CONC 32.2 g/dL (32.0-36.0); MEAN CORPUSCULAR VOLUME 104.9 fL (81.0-99.0); MEAN PLATELET VOLUME 10.6 fL (7.9-10.8); MONOCYTES # (AUTO) 0.6 10^3/uL (0.0-1.0); MONOCYTES % (AUTO) 10.7 %; NEUTROPHILS # (AUTO) 3.1 10^3/uL (1.5-6.6); PLT - PLATELET COUNT 177 10^3/uL (130-450); RED BLOOD COUNT 3.64 10^6/uL (4.20-5.40); RED CELL DISTRIBUTION WIDTH 13.5 % (12.0-15.0); WHITE BLOOD COUNT 5.4 x10^3/uL (4.8-10.8)
[2019-10-14 00:14] LABS: INR 1.6 (0.8-1.2); PT - PROTHROMBIN TIME 17.5 secs (9.9-12.6)
[2019-10-14 00:31] LABS: CALCIUM 9.3 mg/dL (8.5-10.3); CREATININE 1.1 mg/dL (0.4-1.0)
--- NOTE | 2019-10-14 00:38 | CT Report ---
Reason: fall Procedure Date: 10/14/2019 Accession Number: [id number] / [id number] Procedure: CT - HEAD WO CPT Code: Final Report FULL RESULT: EXAM: CT HEAD EXAM DATE: 10/14/2019 12:12 AM. CLINICAL HISTORY: Fall. On blood thinner. Patient is nonverbal. COMPARISON: HEAD W/O 10/10/2019 10:55 PM. TECHNIQUE: Multiaxial CT images were obtained from the foramen magnum to the vertex. Reformats: Sagittal and coronal. IV contrast: None. In accordance with CT protocol optimization, one or more of the following dose reduction techniques were utilized for this exam: automated exposure control, adjustment of mA and/or KV based on patient size, or use of iterative reconstructive technique. FINDINGS: Parenchyma: No intraparenchymal hemorrhage. No evidence of mass, midline shift, or CT findings of infarction. Old right frontal infarct. Webber-white differentiation is distinct. Small vessel disease. Extraaxial Spaces: Normal for age. No subdural or epidural collections identified. Ventricles: Normal in size and position. Sinuses and Orbits: Opacification of some of the right mastoid air cells is unchanged. The visualized paranasal sinuses are unremarkable. Bones: No evidence of fracture or calvarial defect. Other: Right frontal scalp hematoma. IMPRESSION: 1. Small vessel disease and old right frontal infarct. 2. No acute intracranial abnormality. RADIA
[2019-10-14 00:40] LABS: BILIRUBIN,URINE NEGATIVE (NEGATIVE); GLUCOSE, URINE (UA) NEGATIVE (NEGATIVE); KETONES,URINE (UA) NEGATIVE (NEGATIVE); LEUKOCYTE ESTERASE, URINE NEGATIVE (NEGATIVE); NITRITE,URINE NEGATIVE (NEGATIVE); OCCULT BLOOD,URINE NEGATIVE (NEGATIVE); PH,URINE 6.5 PH (5.0-7.5); PROTEIN,URINE NEGATIVE (NEGATIVE); UROBILINOGEN,URINE 0.2 (NORMAL) E.U./dL (NORMAL)
[2019-10-14 00:42] LABS: CLARITY,URINE CLEAR (CLEAR)
--- NOTE | 2019-10-14 00:46 | CT Report ---
Reason: neck pain Procedure Date: 10/14/2019 Accession Number: [id number] / [id number] Procedure: CT - CERVICAL SPINE WO CPT Code: Final Report FULL RESULT: EXAM: CT CERVICAL SPINE WITHOUT CONTRAST DATE: 10/14/2019 12:13 AM. HISTORY: Neck pain. COMPARISONS: CERVICAL SPINE W/O 10/10/2019 10:57 PM. TECHNIQUE: Thin-section axial images were acquired of the cervical spine without contrast. Post-processing: Coronal and sagittal reformats. Other: None. In accordance with CT protocol optimization, one or more of the following dose reduction techniques were utilized for this exam: automated exposure control, adjustment of mA and/or KV based on patient size, or use of iterative reconstructive technique. FINDINGS: Motion artifact degrades the exam. Alignment: The grade 1 anterolisthesis at C7-T1 and T1-T2 are unchanged. No scoliosis. Bones: No evidence of fracture within the limitations imposed by the motion artifact, greatest extending from C4-C7. No suspicious lytic or blastic lesions. The bones are osteopenic. Interspace Levels/Facets: Multilevel degenerative disk disease and facet hypertrophy are unchanged. Musculature: Normal. No fatty atrophy. Other: Right mastoid air cell opacification is unchanged. The lung apices are clear. Atherosclerotic plaque calcifications are seen in the aortic arch. IMPRESSION: 1. No significant change in the appearance of the multilevel degenerative disk disease and facet hypertrophy. 2. No evidence of acute fracture within the limitations of the exam caused by motion artifact. 3. Unchanged right mastoid air cell opacification. RADIA
--- NOTE | 2019-10-14 00:53 | ED Physician Documentation ---
PD HPI Fall - Stated complaint Stated Complaint: FELL - Chief complaint Chief Complaint: Laceration - History obtained from History obtained from: Patient - History of Present Illness Mechanism of injury: Unknown Where injury occurred: Home Timing - onset: Today - Additional information Additional information: This is a 78-year-old woman with history of dementia who [facility] tonight out of bed. Unknown whether or not she struck her head or passed out. She is brought in by ambulance in a cervical collar. She can tell me her name but otherwise does not know the date or where she is at. She does not complain of any pain. She is known to be anticoagulated. 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 : Incontinence HEENT: None Psych: Other Musculoskeletal: Fatigue Derm: None - Past Surgical History Past Surgical History: Yes Cardiovascular: Pacemaker - Present Medications Home Medications: Ambulatory Orders Medication Instructions Recorded Confirmed Apixaban [Eliquis] 5 mg PO BID 01/25/18 10/14/19 Aspirin 81 mg PO BID 01/25/18 10/14/19 Digoxin 0.5 tab PO DAILY 01/25/18 10/14/19 Levothyroxine Sodium 75 mcg PO DAILY 01/25/18 10/14/19 Quetiapine Fumarate [Seroquel] 50 mg PO BID 01/25/18 10/14/19 Sertraline HCl 100 mg PO DAILY 01/25/18 10/14/19 haloperidoL [Haldol] 1 mg PO QPM PRN 09/07/18 10/14/19 Ferrous Sulfate 325 mg PO DAILY #30 tablet 04/16/19 10/14/19 ALPRAZolam [Alprazolam] 0.25 mg PO Q6HR PRN 10/14/19 10/14/19 ALPRAZolam [Alprazolam] 2 tab PO Q6HR PRN 10/14/19 10/14/19 Polyethylene Glycol 3350 [Miralax] 17 gm PO DAILY PRN 10/14/19 10/14/19 haloperidoL [Haldol] 0.5 mg PO DAILY 10/14/19 10/14/19 - Allergies Allergies/Adverse Reactions: Allergies Allergy/AdvReac Type Severity Reaction Status Date / Time No Known Drug Allergies Allergy Verified 10/13/19 23:47 - Social History Does the pt smoke?: No Smoking Status: Never smoker Does the pt drink ETOH?: No Does the pt have substance abuse?: No - Immunizations Immunizations are current?: Yes - POLST Patient has POLST: Yes PD ED PE NORMAL - Vitals Vital signs reviewed: Yes - General General: No acute distress, Other (She seated upright in the bed with a cervical collar on she keeps grabbing onto the side rails and pulling herself forward does not appear to be in any pain.). No: Alert and oriented X 3 - HEENT HEENT: Atraumatic, PERRL - Neck Neck: Other (Remained in the cervical collar until imaging could be obtained) - Cardiac Cardiac: RRR, No murmur, Strong equal pulses - Respiratory Respiratory: No respiratory distress, Clear bilaterally - Abdomen Abdomen: Soft - Back Back: Other (No bruising noted across her back) - Derm Derm: Other (There are scattered bruises on her upper extremity and some that are covered with with tape that appear to be some minor abrasions presumably as these are not related today's fall because they have pre-existing tape type closure over them. There is a little bit of fresh blood on her right hand but no obvious laceration that needs to be sutured.) - Extremities Extremities: Other (Unable to move all of the joints of her upper extremities and lower extremities without her acting as if she is in any discomfort.) - Neuro Neuro: No motor deficit, No sensory deficit, Normal speech (She would only answer me to tell me her name) Results - Vitals Vitals: Vital Signs - 24 hr 10/13/19 10/14/19 23:42 00:31 Temperature 36.1 C L Heart Rate 70 76 Respiratory 18 19 Rate Blood Pressure 149/88 H 126/67 O2 Saturation 98 91 L Oxygen O2 Source Room air - Labs Labs: Laboratory Tests 10/13/19 10/13/19 10/13/19 23:40 23:40 23:40 WBC 5.4 RBC 3.64 L Hgb 12.3 Hct 38.2 MCV 104.9 H MCH 33.8 H MCHC 32.2 RDW 13.5 Plt Count 177 MPV 10.6 Neut # (Auto) 3.1 Lymph # (Auto) 1.6 [place] # (Auto) 0.6 Eos # (Auto) 0.1 Baso # (Auto) 0.0 Absolute Nucleated RBC 0.00 Nucleated RBC % 0.0 PT 17.5 H INR 1.6 H Sodium 140 Potassium 4.4 Chloride 103 Carbon Dioxide 28 Anion Gap 9.0 BUN 32 H Creatinine 1.1 H Estimated GFR (MDRD) 48 L Glucose 95 Calcium 9.3 Urine Color Urine Clarity Urine pH Ur Specific [place] Urine Protein Urine Glucose (UA) Urine Ketones Urine Occult Blood Urine Nitrite Urine Bilirubin Urine Urobilinogen Ur Leukocyte Esterase Ur Microscopic Review Urine Culture Comments 10/14/19 00:30 WBC RBC Hgb Hct MCV MCH MCHC RDW Plt Count MPV Neut # (Auto) Lymph # (Auto) [place] # (Auto) Eos # (Auto) Baso # (Auto) Absolute Nucleated RBC Nucleated RBC % PT INR Sodium Potassium Chloride Carbon Dioxide Anion Gap BUN Creatinine Estimated GFR (MDRD) Glucose Calcium Urine Color YELLOW Urine Clarity CLEAR Urine pH 6.5 Ur Specific [place] 1.020 Urine Protein NEGATIVE Urine Glucose (UA) NEGATIVE Urine Ketones NEGATIVE Urine Occult Blood NEGATIVE Urine Nitrite NEGATIVE Urine Bilirubin NEGATIVE Urine Urobilinogen 0.2 (NORMAL) Ur Leukocyte Esterase NEGATIVE Ur Microscopic Review NOT INDICATED Urine Culture Comments NOT INDICATED - Rads (name of study) CT head Radiology: See rad report (old infarct; neg acute) CT C spine Radiology: See rad report (neg fracture) PD MEDICAL DECISION MAKING - ED course Complexity details: reviewed results ED course: There are no obvious external injuries. Her INR was 1.6. Labs did not reveal any obvious reason why she would be falling. No obvious infection. Should be [facility] back to the prison. Departure - Departure Disposition: 01 Home, Self Care Clinical Impression: Fall Qualifiers: Encounter type: initial encounter Qualified Code(s): W19.XXXA - Unspecified fall, initial encounter Condition: Good Instructions: ED Fall Uncertain Cause Follow-Up: Dwaine Tafoya PA-C [Credentialed Staff Provider] - Comments: CT of the head is negative. Try to prevent further falls.
[2019-10-14 02:44] VITALS: BP 125/68
== END 2019-10-14 02:26 | disposition home or self-care (01) ==
LOC: EDUNIT# → ED 23:33
DX: Z03.89 Encounter for observation for other suspected diseases and conditions ruled out (principal); F03.90 Unspecified dementia, unspecified severity, without behavioral disturbance, psychotic disturbance, mood disturbance, and anxiety; Z79.01 Long term (current) use of anticoagulants
CPT/HCPCS: 36415; 51701; 70450; 72125; 80048; 81001; 81003; 85025; 85610; 87086; 99281; 99285

== ENCOUNTER 2019-10-14 02:29 | Outpatient (CLI) | payer MEDICARE, MEDICAID | END 2019-10-14 02:30 | disposition home or self-care (01) | LOC: EMS 02:29 | PROVIDERS: ATTEND Surgery | DX: F03.90 Unspecified dementia, unspecified severity, without behavioral disturbance, psychotic disturbance, mood disturbance, and anxiety (principal); W19.XXXA Unspecified fall, initial encounter | CPT/HCPCS: A0425; A0428 ==

== ENCOUNTER 2019-10-16 23:54 | Outpatient (CLI) | payer MEDICARE, MEDICAID | END 2019-10-16 23:59 | disposition critical access hospital (66) | LOC: EMS 23:54 | PROVIDERS: ATTEND Surgery | DX: Z79.01 Long term (current) use of anticoagulants (principal); W19.XXXA Unspecified fall, initial encounter; Z91.81 History of falling; Y92.092 Bedroom in other non-institutional residence as the place of occurrence of the external cause | CPT/HCPCS: A0425; A0429 ==

== ENCOUNTER 2019-10-17 00:11 | Emergency (ER) | payer MEDICARE, MEDICAID ==
--- NOTE | 2019-10-17 02:26 | ED Physician Documentation ---
PD HPI Fall - Stated complaint Stated Complaint: GLF - Chief complaint Chief Complaint: General - History obtained from History obtained from: EMS, Caregiver - History of Present Illness Mechanism of injury: Unknown Fall distance: Unknown Where injury occurred: Other ([facility]) Timing - onset: Unknown Recently seen: Emergency Dept - Additional information Additional information: 3rd [facility] ED visit in 8 days for fall. tonight, she was found on floor and it is not known if she fell. she in on blood-thinner. she has dementia and POLST form says DNR and comfort measures only. 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 : Incontinence HEENT: None Psych: Other Musculoskeletal: Fatigue Derm: None - Past Surgical History Past Surgical History: Yes Cardiovascular: Pacemaker - Present Medications Home Medications: Ambulatory Orders Medication Instructions Recorded Confirmed Apixaban [Eliquis] 5 mg PO BID 01/25/18 10/17/19 Aspirin 81 mg PO BID 01/25/18 10/17/19 Digoxin 0.5 tab PO DAILY 01/25/18 10/17/19 Levothyroxine Sodium 75 mcg PO DAILY 01/25/18 10/17/19 Quetiapine Fumarate [Seroquel] 50 mg PO BID 01/25/18 10/17/19 Sertraline HCl 100 mg PO DAILY 01/25/18 10/17/19 haloperidoL [Haldol] 1 mg PO QPM PRN 09/07/18 10/17/19 Ferrous Sulfate 325 mg PO DAILY #30 tablet 04/16/19 10/17/19 ALPRAZolam [Alprazolam] 0.25 mg PO Q6HR PRN 10/14/19 10/17/19 ALPRAZolam [Alprazolam] 2 tab PO Q6HR PRN 10/14/19 10/17/19 haloperidoL [Haldol] 0.5 mg PO DAILY 10/14/19 10/17/19 polyethylene glycoL 3350 [Miralax] 17 gm PO DAILY PRN 10/14/19 10/17/19 Acetaminophen 500 - 1,000 mg PO TID PRN 10/17/19 10/17/19 polyethylene glycoL 3350 [Miralax] 17 gm PO DAILY PRN 10/17/19 10/17/19 - Allergies Allergies/Adverse Reactions: Allergies Allergy/AdvReac Type Severity Reaction Status Date / Time No Known Drug Allergies Allergy Verified 10/17/19 00:46 - Social History Does the pt smoke?: No Smoking Status: Never smoker Does the pt drink ETOH?: No Does the pt have substance abuse?: No - Immunizations Immunizations are current?: Yes - POLST Patient has POLST: Yes PD ED PE NORMAL - Vitals Vital signs reviewed: Yes - General General: No acute distress, Well developed/nourished, Other (sleeping, awakens to verbal with gentle tactile) - HEENT HEENT: PERRL, EOMI, Moist mucous membranes, Other (right forehead hematoma, appears recent but not acute (blue/green discoloration)) - Neck Neck: No bony TTP - Cardiac Cardiac: RRR - Respiratory Respiratory: No respiratory distress, Clear bilaterally - Abdomen Abdomen: Soft, Non tender - Extremities Extremities: Normal ROM s pain (both lower extrmities put through passive ROM and no limitations nor apparent discomfort; no apparent discomfort with ROM BUE, but marked crepitus with ROM of left shoulder.) Results - Vitals Vitals: Oxygen O2 Source Room air - Rads (name of study) left shoulder xrays Radiology: Prelim report reviewed, See rad report PD MEDICAL DECISION MAKING - ED course Complexity details: reviewed old records, reviewed results, re-evaluated patient, considered differential, d/w family Departure - Departure Disposition: 01 Home, Self Care Clinical Impression: Anticoagulant long-term use Fall Qualifiers: Encounter type: initial encounter Qualified Code(s): W19.XXXA - Unspecified fall, initial encounter Dementia Qualifiers: Dementia type: unspecified type Dementia behavioral disturbance: without behavioral disturbance Qualified Code(s): F03.90 - Unspecified dementia without behavioral disturbance Condition: Stable Instructions: ED Fall Uncertain Cause, ED Prevention Fall Discharge Date/Time: 10/17/19 04:47
--- NOTE | 2019-10-17 03:13 | XRAY Report ---
Reason: crepitus with movement, recent falls Procedure Date: 10/17/2019 Accession Number: [id number] / [id number] Procedure: XR - Shoulder 3 View LT CPT Code: Final Report FULL RESULT: EXAM: LEFT SHOULDER RADIOGRAPHY EXAM DATE: 10/17/2019 03:06 AM. CLINICAL HISTORY: Crepitus with movement, recent falls. COMPARISON: CERVICAL SPINE W/O 10/14/2019 12:09 AM. CHEST 2 VIEW 05/11/2019 11:39 PM. TECHNIQUE: 3 views. FINDINGS: Bones: Osteopenic left shoulder without displaced fracture seen. Joints: Normal alignment. Advanced degenerative changes in the glenohumeral joint. Soft tissues: The visualized hemithorax is unremarkable with note of a pacemaker. No soft tissue swelling. IMPRESSION: 1. Osteopenic left shoulder without displaced fracture seen. 2. Advanced glenohumeral degenerative changes. RADIA
[2019-10-17 04:30] VITALS: BP 114/63
== END 2019-10-17 04:47 | disposition home or self-care (01) ==
LOC: EDUNIT# → ED 00:11
DX: S00.83XA Contusion of other part of head, initial encounter (principal); W18.30XA Fall on same level, unspecified, initial encounter; Y92.122 Bedroom in nursing home as the place of occurrence of the external cause; M19.012 Primary osteoarthritis, left shoulder; M85.812 Other specified disorders of bone density and structure, left shoulder; I48.91 Unspecified atrial fibrillation; Z79.01 Long term (current) use of anticoagulants; Z79.82 Long term (current) use of aspirin; Z95.0 Presence of cardiac pacemaker; F03.90 Unspecified dementia, unspecified severity, without behavioral disturbance, psychotic disturbance, mood disturbance, and anxiety; Z66 Do not resuscitate
CPT/HCPCS: 93005; 99281; 99284

== ENCOUNTER 2019-10-17 04:49 | Outpatient (CLI) | payer MEDICARE, MEDICAID | END 2019-10-17 04:50 | disposition home or self-care (01) | LOC: EMS 04:49 | PROVIDERS: ATTEND Surgery | DX: Z03.89 Encounter for observation for other suspected diseases and conditions ruled out (principal); F03.90 Unspecified dementia, unspecified severity, without behavioral disturbance, psychotic disturbance, mood disturbance, and anxiety; W18.30XA Fall on same level, unspecified, initial encounter | CPT/HCPCS: A0425; A0428 ==

== ENCOUNTER 2019-11-21 19:20 | Outpatient (CLI) | payer MEDICARE, MEDICAID | END 2019-11-21 19:21 | disposition critical access hospital (66) | LOC: EMS 19:20 | PROVIDERS: ATTEND Surgery | DX: S00.212A Abrasion of left eyelid and periocular area, initial encounter (principal); S00.211A Abrasion of right eyelid and periocular area, initial encounter; Z79.01 Long term (current) use of anticoagulants; W19.XXXA Unspecified fall, initial encounter; Y92.092 Bedroom in other non-institutional residence as the place of occurrence of the external cause | CPT/HCPCS: A0425; A0429 ==

== ENCOUNTER 2019-11-21 19:35 | Emergency (ER) | payer MEDICARE, MEDICAID ==
--- NOTE | 2019-11-21 19:40 | ED Physician Documentation ---
PD HPI Fall - Stated complaint Stated Complaint: FALL/HEAD INJURY - History obtained from History obtained from: EMS - History of Present Illness Mechanism of injury: Unknown Fall distance: From bed Where injury occurred: Other ([facility]) Timing - onset: Enter time (19:30), Today Injury(ies) location: Face Contributing factors: Anticoagulated (Eliquis) Recently seen: Not recently seen - Additional information Additional information: resident at [facility] with baseline dementia and nonverbal. BIBA for fall out of bed, unwitnessed. She is on eliquis. Also had fall around noon today but this was witnessed and there was reportedly no head injury. 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 : Incontinence HEENT: None Psych: Other Musculoskeletal: Fatigue Derm: None - Past Surgical History Past Surgical History: Yes Cardiovascular: Pacemaker - Present Medications Home Medications: Ambulatory Orders Medication Instructions Recorded Confirmed Apixaban [Eliquis] 5 mg PO BID 01/25/18 10/17/19 Aspirin 81 mg PO BID 01/25/18 10/17/19 Digoxin 0.5 tab PO DAILY 01/25/18 10/17/19 Levothyroxine Sodium 75 mcg PO DAILY 01/25/18 10/17/19 Quetiapine Fumarate [Seroquel] 50 mg PO BID 01/25/18 10/17/19 Sertraline HCl 100 mg PO DAILY 01/25/18 10/17/19 haloperidoL [Haldol] 1 mg PO QPM PRN 09/07/18 10/17/19 Ferrous Sulfate 325 mg PO DAILY #30 tablet 04/16/19 10/17/19 ALPRAZolam [Alprazolam] 0.25 mg PO Q6HR PRN 10/14/19 10/17/19 ALPRAZolam [Alprazolam] 2 tab PO Q6HR PRN 10/14/19 10/17/19 haloperidoL [Haldol] 0.5 mg PO DAILY 10/14/19 10/17/19 Acetaminophen 500 - 1,000 mg PO TID PRN 10/17/19 10/17/19 polyethylene glycoL 3350 [Miralax] 17 gm PO DAILY PRN 10/17/19 10/17/19 traZODone [Desyrel] 1 tab DAILY PM 11/21/19 11/21/19 - Allergies Allergies/Adverse Reactions: Allergies Allergy/AdvReac Type Severity Reaction Status Date / Time No Known Drug Allergies Allergy Verified 10/17/19 00:46 - Social History Does the pt smoke?: No Smoking Status: Never smoker Does the pt drink ETOH?: No Does the pt have substance abuse?: No - Immunizations Immunizations are current?: Yes - POLST Patient has POLST: Yes PD ED PE NORMAL - Vitals Vital signs reviewed: Yes - General General: No acute distress, Well developed/nourished, Other (awake, alert but only brief eye contact. does not follow commands and she is nonverbal) - HEENT HEENT: PERRL, Moist mucous membranes - Respiratory Respiratory: No respiratory distress, Clear bilaterally - Abdomen Abdomen: Soft, Non tender - Derm Derm: Other (faint echymosis on forehead (appears several days old, as they are green/brown), as well as more recent blue/red bruising bilateral supraorbit without crepitus, step-off, or apparent discomfort with palpation) - Extremities Extremities: Normal ROM s pain (no apparent discomfort with movement of BUE, BLE) - Neuro Eye Opening: Spontaneous Motor: Localizes to Pain Verbal: None GCS Score: 10 Results - Vitals Vitals: Vital Signs - 24 hr 11/21/19 19:45 Temperature 37.4 C Heart Rate 105 H Respiratory 16 Rate Blood Pressure 174/93 H O2 Saturation 100 Oxygen O2 Source Room air - Rads (name of study) CT head Radiology: Prelim report reviewed, See rad report CT cervical spine Radiology: Prelim report reviewed, See rad report PD MEDICAL DECISION MAKING - ED course Complexity details: reviewed results, re-evaluated patient, considered differential Departure - Departure Disposition: 01 Home, Self Care Clinical Impression: Fall Condition: Stable Instructions: ED Fall Uncertain Cause, ED Prevention Fall Follow-Up: Dwaine Tafoya PA-C [Primary Care Provider] - Discharge Date/Time: 11/21/19 21:47
[2019-11-21 19:50] VITALS: BP 174/93
--- NOTE | 2019-11-21 20:31 | CT Report ---
Reason: GLF, head injury on blood thinners Procedure Date: 11/21/2019 Accession Number: [id number] / [id number] Procedure: CT - CERVICAL SPINE WO CPT Code: Final Report FULL RESULT: EXAM: CT CERVICAL SPINE WITHOUT CONTRAST DATE: 11/21/2019 08:06 PM. HISTORY: GLF, head injury on blood thinners. COMPARISONS: CERVICAL SPINE W/O 10/14/2019 12:09 AM. TECHNIQUE: Thin-section axial images were acquired of the cervical spine without contrast. Post-processing: Coronal and sagittal reformats. Other: None. In accordance with CT protocol optimization, one or more of the following dose reduction techniques were utilized for this exam: automated exposure control, adjustment of mA and/or KV based on patient size, or use of iterative reconstructive technique. FINDINGS: Alignment: There is 3 mm of anterolisthesis at C7-T1. Alignment at other levels appear satisfactory. Bones: Negative for acute fracture. There is multilevel left greater than right facet degenerative disease and disk osteophyte spurring. Interspace Levels/Facets: C1-C2: Mild spurring and hypertrophy at the anterior C1 and C2 articulation. C2-C3: Mild disk height loss with left greater than right facet spurring. C3-C4: There is left foraminal stenosis secondary to a large disk osteophyte spur and uncovertebral hypertrophy. There is moderate disk height loss. C4-C5: Moderate to severe disk height loss with left greater than right facet spurring. C5-C6: Moderate to severe disk height loss and disk osteophyte spurring with bilateral facet degenerative disease. C6-C7: Moderate to severe disk height loss and disk osteophyte spurring. C7-T1: Moderate disk height loss. Musculature: Musculature appears symmetric. Other: There is moderate bilateral apical groundglass opacity with septal thickening. There is partial opacification of the right mastoid sinus. IMPRESSION: 1. Negative for acute fracture. 2. Multilevel moderate to severe degenerative disk disease. 3. Left greater than right chronic facet spurring and hypertrophy. Greatest at the left C3-C4 level with left foraminal stenosis. 4. Findings of moderate interstitial pulmonary edema. RADIA
--- NOTE | 2019-11-21 20:32 | CT Report ---
Reason: GLF, head injury on blood thinners Procedure Date: 11/21/2019 Accession Number: [id number] / [id number] Procedure: CT - HEAD WO CPT Code: Final Report FULL RESULT: EXAM: CT HEAD EXAM DATE: 11/21/2019 08:06 PM. CLINICAL HISTORY: Ground level fall, head injury on blood thinners. COMPARISON: HEAD W/O 10/14/2019 12:05 AM. TECHNIQUE: Multiaxial CT images were obtained from the foramen magnum to the vertex. Reformats: Sagittal and coronal. IV contrast: None. In accordance with CT protocol optimization, one or more of the following dose reduction techniques were utilized for this exam: automated exposure control, adjustment of mA and/or KV based on patient size, or use of iterative reconstructive technique. FINDINGS: PARENCHYMA: No acute hemorrhage, transcortical infarction or mass. Again old right frontal infarct. Periventricular and white matter hypointensities are nonspecific but most consistent with chronic microvascular ischemic changes. EXTRA-AXIAL SPACES: No extra-axial fluid collections. No midline shift. VENTRICLES/SULCI: Enlargement of the lateral and third ventricles with prominence of the cortical sulci consistent with mild cerebral volume loss. VASCULAR STRUCTURES: Arterial calcifications consistent with atherosclerosis. SINUSES: Bilateral maxillary sinus mucus retention cysts or polyps. Trace right mastoid tip effusion. ORBITS: Unremarkable. BONES: No displaced acute calvarial fracture. OTHER: There is a small scalp hematoma at the head vertex. IMPRESSION: 1. No acute intracranial findings. 2. Cerebral atrophy and chronic microvascular ischemic changes. 3. Again old right frontal infarct. RADIA
== END 2019-11-21 21:47 | disposition home or self-care (01) ==
LOC: EDUNIT# → ED 19:35
DX: Z04.89 Encounter for examination and observation for other specified reasons (principal); F03.90 Unspecified dementia, unspecified severity, without behavioral disturbance, psychotic disturbance, mood disturbance, and anxiety; Z79.01 Long term (current) use of anticoagulants
CPT/HCPCS: 70450; 72125; 99281; 99284

== ENCOUNTER 2019-11-21 21:35 | Outpatient (CLI) | payer MEDICARE, MEDICAID | END 2019-11-21 21:36 | disposition home or self-care (01) | LOC: EMS 21:35 | PROVIDERS: ATTEND Surgery | DX: F03.90 Unspecified dementia, unspecified severity, without behavioral disturbance, psychotic disturbance, mood disturbance, and anxiety (principal); S00.212A Abrasion of left eyelid and periocular area, initial encounter; S00.211A Abrasion of right eyelid and periocular area, initial encounter; Z79.01 Long term (current) use of anticoagulants; W18.30XA Fall on same level, unspecified, initial encounter; Z91.81 History of falling | CPT/HCPCS: A0425; A0428 ==

== ENCOUNTER 2019-11-28 14:15 | Outpatient (CLI) | payer MEDICARE, MEDICAID ==
--- NOTE | 2019-11-28 15:05 | CONSULTATION NOTE ---
Palliative Care Consultation - Referral Referring Provider: MICHELLE Concepcion Time of Visit: [id number] Referral setting: Assisted living ([facility]) Referral Reason: Dementia/Frequent Falls - Information Sources Records reviewed: Previous records reviewed History/Review of Systems obtained from: Family (son/MARGY Agudelo and DANY Marcano), Caregiver (facility staff) Exam limitations: Clinical condition (Not arousable during examination and typically only speaks a few words per facility staff) - History of Present Illness Brief History of Present Illness: This is an 79-year-old female who is seen in evaluation today for palliative care consultation. She resides in [facility] assisted living where she has been for approximately the last 2 years. She relocated to [facility] and moved in initially with her son/Mellissa Agudelo and his , Krys but due to her cognitive impairment and the layout of their home it was deemed better suited for her to transition to an assisted living facility. The staff and the patient's family report that the patient typically is constantly on the move and is "not able to sit down for more than 5 seconds." She is constantly walking. She has had a significant weight loss in the last several years. When she moved in with her son and [id number] she weighed approximately 165 pounds. In March 2020 she weighed 115.8lb. Presently, in November 2019 she weighs 98.7 pounds. The son/Mellissa ROBLES reports that he has had to replace her clothes entirely on 2 occasions as they her cloths were too loose and "falling off of her." She has a history of paroxysmal A. fib with a pacemaker device in place. She has not seen a business planner and it is unclear when she was last evaluated by one. Her PCP has requested a cardiology appointment but this has not be scheduled per facility. Her son reports that when she relocated to [facility] they kept her on all her medications. She is presently on digoxin and Eliquis for her A. fib. She routinely falls with multiple visits to the emergency department due to these falls. She was last evaluated in the emerge ncy department on November 21, [address] performed that demonstrated no acute intracranial findings however she does have cerebral atrophy and chronic microvascular changes as well as an old right frontal infarct noted. Her most recent fall was 2 days ago per the patient's son and facility staff. Today, the patient is seen resting on her left side in her bed. She is minimially arousable to tactile stimulus and is not arousable to her name. Staff reports that she was up all through the night and did consume some breakfast and lunch before being laid back down. Today the staff had to assist her with her meals as she was unable to hold her fork. Typically the staff do not need to assist with meals. She also has not been ambulating the last 2 days. Caregiver reports that this morning after attempting to get up she appeared uncomfortable and weak and was transition to a wheelchair as opposed to using her Rollator. The staff report that before breakfast this morning the patient herself reported to "not feeling well." She also had an elevated blood pressure and felt clammy but this has since resolved. Medical/Surgical History - Past Medical History Cardiovascular: reports: Coronary artery disease, [place], Atrial fibrillation Respiratory: reports: COPD Neuro: Dementia, CVA (x2) Neuro: reports: Dementia, CVA Endocrine/Autoimmune: reports: HyPOthyroidism GI: reports: Chronic constipation [employer] WORKFLOW CONSULTANT: reports: None : reports: Incontinence HEENT: reports: None Psych: reports: Other Musculoskeletal: reports: Fatigue Derm: reports: None MRSA Hx?: No - Past Surgical History Cardiovascular: reports: Pacemaker Social History - Living Situation Living arrangement: Assisted living ([facility]) Support System: The patient has resided at [facility] for approximately the last 2 years after relocating to be closer to her son/D MARGARET Agudelo and his , Krys. The patient also has a another son who presently has his own health problems. The patient's son/D MARGARET and his recently relocated to [place] to live in July 2019. Family History - Family History Family History: Mother: , Father: Family History Comment/Other: Non-contributory Medications/Allergies - Medications Home Medications: Ambulatory Orders Medication Instructions Recorded Confirmed Aspirin 81 mg PO DAILY 01/25/18 10/17/19 Digoxin 0.5 tab PO DAILY 01/25/18 10/17/19 Levothyroxine Sodium 75 mcg PO DAILY 01/25/18 10/17/19 Quetiapine Fumarate [Seroquel] 50 mg PO BID 01/25/18 10/17/19 Sertraline HCl 100 mg PO DAILY 01/25/18 10/17/19 haloperidoL [Haldol] 1 mg PO QPM 09/07/18 10/17/19 ALPRAZolam [Alprazolam] 0.25 mg PO Q6HR PRN 10/14/19 10/17/19 ALPRAZolam [Alprazolam] 2 tab PO Q6HR PRN 10/14/19 10/17/19 haloperidoL [Haldol] 0.5 mg PO DAILY 10/14/19 10/17/19 Acetaminophen 500 - 1,000 mg PO TID PRN 10/17/19 10/17/19 polyethylene glycoL 3350 [Miralax] 17 gm PO DAILY PRN 10/17/19 10/17/19 traZODone [Desyrel] 1 tab DAILY PM 11/21/19 11/21/19 Loperamide HCl [Imodium A-D] 1 - 2 cap PO PRN MDD NTE 4 11/28/19 capsules per day - Allergies Allergies/Adverse Reactions: Allergies Allergy/AdvReac Type Severity Reaction Status Date / Time No Known Drug Allergies Allergy Verified 10/17/19 00:46 Review of Systems - Constitutional Constitutional: reports: Weakness, Weight loss (98.7lb present;) - Eyes Eyes: reports: Corrective lenses - Cardiovascular Cardiovascular: denies: Edema, Syncope - Respiratory Respiratory: denies: Cough - Gastrointestinal Gastrointestinal: denies: Constipation, Diarrhea, Nausea, Vomiting - Genitourinary Genitourinary: reports: Incontinence - Musculoskeletal Musculoskeletal: reports: Back pain, Assistive devices. denies: Joint swelling - Integumentary Integumentary: reports: Other (skin breakdown to sacrum) - Neurological Neurological: reports: General weakness, Memory problems - Psychiatric Psychiatric: reports: Behavior disturbances - Endocrine Endocrine: reports: Hypothyroidism - Other Findings Other Findings: ROS obtained from family (Son/DPOA Magnus Edgar and Krys SAENZ) and caregivers at [facility]. Physical Exam - Vital Signs Temperature: 36.5 C Pulse Rate: 73 Respiratory Rate: 14 O2 Saturation: 95 (on RA at rest) Blood Pressure: 134/80 (right wrist cuff) - Physical Exam General Appearance: positive: No acute distress, Other (difficult to arousable, asleep, resting comfortably, minimal response to tactile stimulus and no response to her name) Eyes Bilateral: positive: Normal inspection ENT: positive: No signs of dehydration Neck: positive: No JVD, Trachea midline Cardiovascular: positive: Regular rate & rhythm, No murmur, Other (+pacemaker) Respiratory: positive: No respiratory distress, Breath sounds nml. negative: Rhonchi Abdomen: positive: Non-tender, Soft, Nml bowel sounds. negative: Guarding, Distended Skin: positive: Pressure wound (to left and right sacrum noted skin break down appx 1cm in size with yellow slough and moderate drainage after dressing removed. Surrounding wound bed with trace maceration.), Other ( Scattered ecchymoses to BUE with tubigrip for skin protection. Right rastafarian noted induration with two steristrips in place that is nontender to palpation with res olving ecchymosis (green in color)) Extremities: negative: Non-tender, Joint swelling Neurologic/Psychiatric: positive: Other (Unable to assess given patient's minimal arousable level) Palliative Care - POLST Patient has POLST: Yes POLST Status: DNR, Comfort Measures Constipation: No, Managed Performance Status: The patient has had a steady decline in cognition over the last 2 years. Until the last 2 days she has mainly been ambulatory with a Rollator with frequent falls. She is dependent on caregiving staff for all her ADLs. She is incontinent of urine. She has a history of frequent falls. FAST 7B - Palliative Care Discussion: The patient has had a steady cognitive decline over the last 2 years presently residing in an assisted living facility. The patient's son's/D ZAINABA, Magnus reports there has been a further decrease in the patient's functional status over the last year including weight loss.The patient's son is saddened regarding the decline that his mother has taken. He wishes to focus on quality of life and comfort measures. The medications that the patient is presently on has remained from her initial move to [facility]. The son/D ZAINABA does not wish to add additional medications if they were not in some way relieving symptoms. For example, the son/D ZAINABA reported a hospitalization that resulted in antibiotic use for treatment of an infection that was causing the patient discomfort, he found this was in alignment with what his mother would wish for. The son/D MARGARET reports that his mother "would never have wanted to live this way." When she was still talking she had relayed to him that she never wanted to be placed in an assisted living facility. The son/D POA is aware of the patient's continued decline and wishes to avoid hospitalization as well as ER transfers. The son/D POA wishes to focus on quality of life with comfort as a goal with a transition to hospice when medically appropriate. Results - Lab Results Lab results reviewed: Yes Lab and Imaging Results: 10/13/2019 H/H 12.3/38.2% Impression and Recommendations - Palliative Care Impression: This is an 79-year-old female with a history of dementia, weight loss, and overall cognitive and functional decline with skin breakdown to her sacrum. Today she is minimally arousable and different difficult to assess. It is unclear if she has suffered an acute event or is sedated due to being up the evening before. Palliative care to continue to provide support for pain and symptom management as well as anticipatory guidance. Recommendations/Counseling Done: 1. Mental status change. Patient is presently difficult to arouse with a decreased functional status noted by the facility staff in the last two days. Due to the patient's history of frequent falls, it is unclear if she has developed a delayed subdural hematoma as she is on anticoagulation with eliquis or if this is due to lack of sleep last night. Her head CT preformed on 11/21/2019 was without acute intracranial findings. She is afebrile and without respiratory or urinary complaints indicative of infection. Reviewed with son/DPOA, Magnus, regarding risk of delayed subdural hematoma and he declines im aging with ER evaluation. Son wishes to focus on comfort. Obtain VS qshift x 3 days and notify POLICE WORKER/MD if temp greater than or equal to 100.1F, HR greater or equal to 100, RR greater than or equal to 24, lethargy or change in mental status. 2. Dementia with behavioral disturbances. Chronic and progressive. As the patient has a history of two prior CVA, there is likely a vascular competent to her dementia. The patient is presently on haldol and quetiapine for her behavioral disturbances as well as PRN alprazolam. She has had a weight loss of over 14.8% in the last 8 months. Son/KRISTY wishes to focus on comfort. Continue current medications as ordered and consider dose reduction in future of haldol. 3. Frequent falls. Falls unavoidable due to dementia. She has had multiple emergency room visits due to her frequent falls. Request that facility contact son/KRISTY regarding any request for hospital transfers prior to transport as goals of care are to focus on comfort. 4. Paroxysmal Afib with pacemaker. Patient has been on coumadin previously and was transitioned to eliquis for anticoaglulation. Given her history of falls, the risk vs benefit was reviewed with son/KRISTY regarding anticoaglulation and risk for bleeding and given goals are to focus on comfort, yanique/KRISTY wishes to proceed with discontinuation of eliquis with understanding that the patient's risk of a thromboembolic event is increased, but at this time, the risk of an adverse event such as bleeding secondary to the continuation of the DOAC outweighs the benefit (HAS BLED score 4). Continue digoxin and if patient's c linical status improves will re-address discontinuation with son/KRISTY given limited benefit of digoxin as monotherapy. 5. Skin breakdown, stage II pressure ulcer to sacrum. Multifactorial due to kaylie ent's nutritional status with weight loss and urinary incontinence. This POLICE WORKER applied a new dressing to the site after cleansing with normal saline solution and patting the area dry. Recommend to wound: cleanse with NS, pat dry, apply foam dressing every 3 days or PRN if dressing is lifting or saturated until healed. Request home health nursing for wound care. 6. Advanced care planning. Patient has a POLST in place as DNAR with comfort measures with antibiotic use with comfort as goal. Son/Magnus CHENG has relayed that his mother would not have wished for medical interventions to prolong her life and at this point in her progression of her dementia he wishes to focus on quality of life and comfort measures with referral to hospice when medically appropriate. D/c ferrous sulfate after discussion with yanique/KRISTY. Hospice eligibility reviewed with son with questions and answers addressed. FACE TO FACE: It would be a taxing, considerable effort for the patient to leave her assisted living facility due to her frequent falls and cognitive decline due to her dementia. The patient presently has 2 sacral wounds approximately that is multifactorial. Patient would benefit from home health nursing for wound care management and education of staff. Time Spent: Total time spent 30 with greater than 50% of time spent in counseling and coordination of care with facility staff; examination of the patient; medication reconciliation; and reviewing medical records. Review of palliative care and hospice philosophy with yanique/Magnus WAGNER and DANY Marcano as well as discussion of risks vs benefits of anticoagulation in paroxysmal afib at length as well as recent change in patient's presentation with review of plan of care. Message left for PCP, MICHELLE Tafoya updating regarding POC. Disclaimer: The chart note was formulated using voice recognition technology and unfortunately sound alike errors may occur.
== END 2019-11-28 14:16 | disposition home or self-care (01) ==
LOC: PC 14:15
PROVIDERS: ATTEND Nurse Practitioner Family
DX: Z51.5 Encounter for palliative care (principal); F03.91 Unspecified dementia, unspecified severity, with behavioral disturbance; R63.4 Abnormal weight loss; R29.6 Repeated falls; I48.0 Paroxysmal atrial fibrillation; L89.152 Pressure ulcer of sacral region, stage 2; R32 Unspecified urinary incontinence; Z79.899 Other long term (current) drug therapy; Z79.82 Long term (current) use of aspirin; Z79.01 Long term (current) use of anticoagulants; Z95.0 Presence of cardiac pacemaker; Z86.73 Personal history of transient ischemic attack (TIA), and cerebral infarction without residual deficits; Z66 Do not resuscitate

== ENCOUNTER 2019-12-07 10:00 | Outpatient (CLI) | payer MEDICARE, MEDICAID ==
--- NOTE | 2019-12-07 11:42 | CONSULTATION NOTE ---
Palliative Care Follow Up - Referral Referring Provider: MICHELLE Concepcion Time of Visit: [id number] Referral setting: Assisted living ([facility]) Referral Reason: Dementia with behavioral disturbance /Frequent Falls - Information Sources Records reviewed: Previous records reviewed History/Review of Systems obtained from: Caregiver (facility staff) Exam limitations: Clinical condition (Advanced dementia and speaks few words) - History of Present Illness Update Brief HPI Update: An 79-year-old female who is seen at [facility] where she has resided for approximately the last 2 years. She has advanced dementia and a history of frequent falls. Given her history of CAD and CVA likely has vascular dementia. She has had a progressive cognitive decline and more recently a more lowe functional decline. She was previously ambulatory, never sitting still within the facility. She frequently sustained falls and was last evaluated in the emergency department on November 21, [address] with a negative head CT outside of demonstration of a previous infarct and chronic microvascular changes. She had sustained a fall on appx 11/26 and since that time has not been ambulatory. She is now wheelchair-bound. When she attempts to stand her joints stiffen and she is unable to remain upright with appearance of some discomfort reported by the staff. Upon review of the MAR, no PRN tylenol has been administered. She last sustained a fall on 12/05. On her initial evaluation by palliative care on 11/28 her Eliquis for her atrial fibrillation was discontinued. She has had noted weight loss. In March 2019 she weighed 115.8 pounds. Today when weighed she weighed 104 pounds. She continues to be able to self feed. Her son/D MARGARET had previously reported that he has had to replace her close entirely on 2 occasions due to her significant weight loss. She has developed a pressure ulcer to her sacrum that was unable to be viewed today due to positioning but per staff report with the current dressing application it is slowly resolving. There is a new dry area noted on her right upper back that nursing staff is asking to be looked at as well. Patient is presently pending for home health nursing for wound care services. The patient is seen today out of bed in a wheelchair. In the common area drawling with her finger on the table. She maintains limited eye contact with this HAND INSPECTOR. However, she is alert unlike her previous evaluation on 11/28. Patient has a past medical history of dementia, IA, paroxysmal atrial fibrillation, pacemaker, coronary artery disease, COPD, CVA x2, hypothyroidism, constipation. Social History - Living Situation Living arrangement: Assisted living Support System: The patient has resided in [facility] for approximately the last 2 years after moving to be closer to her son/D MARGARET Agudelo and his , Kelle. The patient has 2 sons. Presently her son/D MARGARET and his have relocated to [place] to reside. Medications/Allergies - Medications Home Medications: Ambulatory Orders Medication Instructions Recorded Confirmed Aspirin 81 mg PO DAILY 01/25/18 10/17/19 Digoxin 0.5 tab PO DAILY 01/25/18 10/17/19 Levothyroxine Sodium 75 mcg PO DAILY 01/25/18 10/17/19 Quetiapine Fumarate [Seroquel] 50 mg PO BID 01/25/18 10/17/19 Sertraline HCl 100 mg PO DAILY 01/25/18 10/17/19 haloperidoL [Haldol] 1 mg PO QPM 09/07/18 10/17/19 haloperidoL [Haldol] 0.5 mg PO DAILY 10/14/19 10/17/19 polyethylene glycoL 3350 [Miralax] 17 gm PO DAILY PRN 10/17/19 10/17/19 traZODone [Desyrel] 1 tab DAILY PM 11/21/19 11/21/19 Loperamide HCl [Imodium A-D] 1 - 2 cap PO PRN MDD NTE 4 11/28/19 capsules per day Acetaminophen 1,000 mg PO BID 12/07/19 12/07/19 Acetaminophen 500 mg PO Q12H PRN 12/07/19 12/07/19 Menthol/Aloe Vera Extract [Icy Hot 1 applic TP DAILY PRN 12/07/19 12/07/19 16% Power Gel] Polyethylene Glycol 3350 [Miralax] 17 g PO DAILY PRN 12/07/19 12/07/19 - Allergies Allergies/Adverse Reactions: Allergies Allergy/AdvReac Type Severity Reaction Status Date / Time No Known Drug Allergies Allergy Verified 10/17/19 00:46 Review of Systems - Constitutional Constitutional: reports: Weakness, Weight loss (present weight 104lb). denies: Fever - Eyes Eyes: reports: Corrective lenses - Ears, Nose & Throat Ears, Nose & Throat: denies: Hearing aids - Cardiovascular Cardiovascular: denies: Chest pain, Edema - Respiratory Respiratory: denies: Cough - Gastrointestinal Gastrointestinal: denies: Abdominal pain, Constipation (Bowel movements noted on 12/05 and 12/06), Diarrhea - Genitourinary Genitourinary: reports: Incontinence - Musculoskeletal Musculoskeletal: reports: Stiffness, Limited range of motion, Muscle weakness, Joint pain (when attempting to stand staff report hearing "cracking" in patient's hips) - Integumentary Integumentary: reports: Other (excoraition to right upper back and skin breakdown to sacrum) - Neurological Neurological: reports: General weakness, Memory problems - Psychiatric Psychiatric: reports: Depression, Behavior disturbances - All Other Systems All Other Systems: reports: Other (unable to assess as patient is a poor historian due to dementia and miminal words verbalized) Physical Exam - Vital Signs Temperature: 36.9 C Pulse Rate: 84 O2 Saturation: 94 (on RA at rest) Blood Pressure: 125/78 (left wrist cuff) - Physical Exam General Appearance: positive: No acute distress, Alert, Other (OOB in wheelchair on cushion in common area drawing with her finger on the table) Eyes Bilateral: positive: Other (+corrective lenses) ENT: positive: No signs of dehydration Neck: positive: No JVD, Trachea midline Cardiovascular: positive: Other (Regular, +pacemaker) Respiratory: positive: No respiratory distress. negative: Rales Abdomen: positive: Non-tender, Soft, Nml bowel sounds Skin: positive: Dryness (Dry, rough patch of skin without erythema or discharge appx 0.5cm in size along right scapula), Bruising (Resolving ecchymoses to right voodoo and central forehead.), Pressure wound (Dressing to b/l sacrum C/D/I and unable to visualize at this visit due to positioning---see nursing notes at facility for full details) Extremities: positive: No pedal edema, Other (resistance to passive ROM of BLE; b/l hips nontender to papation) Neurologic/Psychiatric: positive: Disoriented to person, Disoriented to place, Disoriented to time, Weakness, Other (minimal verbalization and does not maintain eye contact during examination) Palliative Care - POLST Patient has POLST: Yes POLST Status: DNR, Comfort Measures Pain: Comment (patient is unable to stand independently when previous was walking with her walker and as she is minimally verbal it is unclear if she is having pain to her b/l hips due to reports from caregivers of "cracking" when they are assisting her.) Anorexia: None Sleep: Variable sleep pattern (she is presently on trazodone nightly. per caregiving staff when she was off of trazodone previously she was unable to sleep.) Constipation: No Performance Status: A steady decline in cognition over the last 2 years. She has had a recent steep functional decline and had previously been ambulatory with her Rollator within the facility with frequent falls. She is now no longer ambulatory and is wheelchair-bound. She is a two-person transfer to the wheelchair. She is dependent on the caregiving staff at the facility for all her ADLs. She remains capable of self-feeding. She is incontinent of urine. FAST 7C - Palliative Care Discussion: The patient has had a steady cognitive decline over the last 2 years with a steep functional decline in the last few weeks and is no longer ambulatory. She also has had noted weight loss greater than 10 pounds in the last 8 months. The son/D POA has previously expressed desire to focus on quality of life and comfort measures for his patient. Presently, the staff is reporting when the patient attempts to stand she is having "cracking" to her hips and it is unclear if she is having noted pain. She has not received any as needed Tylenol. The patient would likely benefit from scheduled Tylenol for reduction of pain to her bilateral hips as she is unable to request medication due to her cognitive impairment secondary to her advanced dementia. The patient is presently a [facility] T7 and appropriate for hospice services. Impression and Recommendations - Palliative Care Impression: This is a frail 79-year-old female who presently resides at [facility] with advanced dementia likelyVascular in nature. With noted weight loss and presently at a fast 7C. She has resolving skin breakdown to her sacrum. Her son/D POA has been clear in a focus on comfort with a transition to hospice when appropriate in last conversation with HAND INSPECTOR. Palliative care to continue to provide support for pain and symptom management as well as anticipatory guidance. Recommendations/Counseling Done: 1. Dementia with behavioral disturbances, likely vascular in nature. Chronic and progressive. Patient has a history of 2 prior CVAs. Her behavioral disturbances are presently controlled on scheduled Haldol and para mine and will continue at this time. She has had a weight loss of approximately 9.5% in the last 8 months. Her son/D ZAINABA wishes to focus on comfort with avoidance of hospital transfer. Presently appropriate for hospice services and would make recommendation for referral to son/D ZAINABA and and [id number] as this is in alignment with the patient's previously expressed wishes with messages left for both parties to discuss and awaiting return phone call. 2. Joint pain. Appears to be focused more to the bilateral hips. Limited capability of assessment due to patient resistance secondary to dementia. Recommend DC PRN Tylenol order. Due to potential underlying pain will start scheduled Tylenol at 1000 mg orally twice daily for joint pain not to exceed 3 g of Tylenol daily from all sources. May also utilize Tylenol 500 mg every 12 hours as needed for pain. Also recommend application of [id number] pain relieving gel IcyHot to apply to affected hip daily as needed. 3. History of frequent falls. Falls unavoidable due to dementia. Has been requested that the facility contact son/D MARGARET regarding and a request for hospital transfers prior to transport as goals of care are to focus on comfort and voiding hospitalization. 4. Dry patch of skin. Noted to right scapula. No clear evidence of skin breakdown. Due to pressure. Recommend application of cream or lotion to the dry patch daily and as needed until resolved and to notify provider if any change. 5 skin breakdown, stage II pressure ulcer to sacrum. Multifactorial due to patient's nutritional status with weight loss and urinary incontinence. Per staff improving. d/c home health order for wound care and may reinstate request if family declines hospice services. Continue wound care order as ordered until resolved. 6. Advance care planning. Pulsed in place at facility as DN AR with comfort measures and antibiotic use with comfort as goal. Due to patient's overall cognitive and functional decline and presently a F AST 7 6 would recommend transition to hospice services for further support and care. CC Home Health Time Spent: Total time spent 40 minutes with greater than 50% of this spent in counseling and coordination of care with facility staff, home health and hospice services, examination of patient, review of pain and symptom management and anticipatory guidance. Messages left for son/DPJOEY and DANY Edgar to discuss POC moving forward at ([phone]) and awaiting a return call. Disclaimer: The chart note was formulated using voice recognition technology and unfortunately sound alike errors may occur.
== END 2019-12-07 10:01 | disposition home or self-care (01) ==
LOC: PC 10:00
PROVIDERS: ATTEND Nurse Practitioner Family
DX: Z51.5 Encounter for palliative care (principal); F03.91 Unspecified dementia, unspecified severity, with behavioral disturbance; R29.6 Repeated falls; R63.4 Abnormal weight loss; M25.552 Pain in left hip; M25.551 Pain in right hip; R53.1 Weakness; R23.8 Other skin changes; L89.152 Pressure ulcer of sacral region, stage 2; R32 Unspecified urinary incontinence; Z79.899 Other long term (current) drug therapy; Z79.82 Long term (current) use of aspirin; Z99.3 Dependence on wheelchair; Z66 Do not resuscitate

== ENCOUNTER 2020-01-15 17:40 | Outpatient (CLI) | payer MEDICARE, MEDICAID | END 2020-01-15 17:41 | disposition critical access hospital (66) | LOC: EMS 17:40 | PROVIDERS: ATTEND Surgery | DX: S01.81XA Laceration without foreign body of other part of head, initial encounter (principal); W06.XXXA Fall from bed, initial encounter; Y92.003 Bedroom of unspecified non-institutional (private) residence as the place of occurrence of the external cause | CPT/HCPCS: A0425; A0429 ==

== ENCOUNTER 2020-01-15 18:04 | Emergency (ER) | payer MEDICARE, MEDICAID ==
--- NOTE | 2020-01-15 18:25 | ED Physician Documentation ---
History of Present Illness - Stated complaint Stated Complaint: GLF, RIGHT EYE LAC - Chief complaint Chief Complaint: Laceration - History obtained from History obtained from: Patient, EMS - History of Present Illness Timing: Today Pain level max: 0 Pain level now: 0 - Additonal information Additional information: Patient lives at [facility]. She was found on the ground after falling and striking her head on a bed rail. Unknown loss of consciousness. Patient has severe dementia. Nothing makes it better or worse. She is not on blood thinners. 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: None : Incontinence HEENT: None Psych: Other Musculoskeletal: Fatigue Derm: None - Past Surgical History Past Surgical History: Yes Cardiovascular: Pacemaker - Present Medications Home Medications: Ambulatory Orders Medication Instructions Recorded Confirmed Aspirin 81 mg PO DAILY 01/25/18 10/17/19 Digoxin 0.5 tab PO DAILY 01/25/18 10/17/19 Levothyroxine Sodium 75 mcg PO DAILY 01/25/18 10/17/19 Quetiapine Fumarate [Seroquel] 50 mg PO BID 01/25/18 10/17/19 Sertraline HCl 100 mg PO DAILY 01/25/18 10/17/19 haloperidoL [Haldol] 1 mg PO QPM 09/07/18 10/17/19 haloperidoL [Haldol] 0.5 mg PO DAILY 10/14/19 10/17/19 polyethylene glycoL 3350 [Miralax] 17 gm PO DAILY PRN 10/17/19 10/17/19 traZODone [Desyrel] 1 tab DAILY PM 11/21/19 11/21/19 Loperamide HCl [Imodium A-D] 1 - 2 cap PO PRN MDD NTE 4 11/28/19 capsules per day Acetaminophen 1,000 mg PO BID 12/07/19 12/07/19 Acetaminophen 500 mg PO Q12H PRN 12/07/19 12/07/19 Menthol/Aloe Vera Extract [Icy Hot 1 applic TP DAILY PRN 12/07/19 12/07/19 16% Power Gel] Polyethylene Glycol 3350 [Miralax] 17 g PO DAILY PRN 12/07/19 12/07/19 - Allergies Allergies/Adverse Reactions: Allergies Allergy/AdvReac Type Severity Reaction Status Date / Time No Known Drug Allergies Allergy Verified 10/17/19 00:46 - Social History Does the pt smoke?: No Smoking Status: Never smoker Does the pt drink ETOH?: No Does the pt have substance abuse?: No - Immunizations Immunizations are current?: Yes - POLST Patient has POLST: Yes PD ED PE NORMAL - Vitals Vital signs reviewed: Yes - General General: No acute distress, Well developed/nourished, Other (Alert, talking but confused) - HEENT HEENT: PERRL, Moist mucous membranes, Pharynx benign, Other (5 cm laceration to the right forehead) - Neck Neck: Supple, no meningeal sign, Other (No tenderness palpation, no step-off or deformity) - Cardiac Cardiac: RRR, Strong equal pulses - Respiratory Respiratory: No respiratory distress, Clear bilaterally - Abdomen Abdomen: Soft, Non tender, Non distended - Back Back: No spinal TTP (No step-off or deformity) - Derm Derm: Warm and dry - Extremities Extremities: No deformity, No tenderness to palpate, Normal ROM s pain, No edema, Other (Full range of motion the bilateral upper and lower extremities without pain.) - Neuro Neuro: Other (Alert, oriented to person only) - Psych Psych: Normal mood, Normal affect Results - Vitals Vitals: Vital Signs - 24 hr 01/15/20 01/15/20 18:15 18:59 Temperature 36.6 C Heart Rate 73 85 Respiratory 16 20 Rate Blood Pressure 163/93 H 171/85 H O2 Saturation 96 100 Oxygen O2 Source Room air - Rads (name of study) Head CT Radiology: Prelim report reviewed, EMP read contemporaneously, See rad report (No acute abnormality) Cervical spine CT Radiology: Prelim report reviewed, EMP read contemporaneously, See rad report (No acute abnormality) Procedures - Laceration (location) Right forehead Length in cm: 5 Wound type: Linear, Into muscle, Clean Neurovascular status: Sensory intact, Motor intact, Vascular intact Wound Preparation: Irrigated copiously NS, Wound explored, To the base Skin layer closure: [place] Other: Patient tolerated well, No complications, Neurovascular intact, Dressing applied Complexity: Simple PD MEDICAL DECISION MAKING - ED course Complexity details: reviewed results, considered differential, d/w patient, d/w executive talent acquisition consultant ED course: I received a phone call from the hospice nurse after her CT scans were completed. Rakesh informed me that the patient is hospice and was not to be transported to the emergency department. As she was here, the laceration was cleansed and closed with rodrick. Bacitracin applied. No acute findings on CT scans. Patient will be sent back to [facility]. No evidence of hip fracture or spinal fracture. This document was made in part using voice recognition software. While efforts are made to proofread this document, sound alike and grammatical errors may occur. Departure - Departure Disposition: 01 Home, Self Care Clinical Impression: Forehead laceration Qualifiers: Encounter type: initial encounter Qualified Code(s): S01.81XA - Laceration without foreign body of other part of head, initial encounter Condition: Good Instructions: ED Laceration All Follow-Up: Dwaine Tafoya PA-C [Primary Care Provider] - Tanner Carmichael MD [Provider Admit Priv/Credential] - Within 1 week Comments: Return if she worsens. If she has any further needs, please contact hospice first.
[2020-01-15] MEDS ORDERED: BACITRACIN ZINC OINT 1 PACKET TOP STA (19:04)
--- NOTE | 2020-01-15 19:20 | CT Report ---
Reason: fall, head injury Procedure Date: 01/15/2020 Accession Number: [id number] / [id number] Procedure: CT - HEAD WO CPT Code: Final Report FULL RESULT: EXAM: CT HEAD EXAM DATE: 01/15/2020 06:40 PM. CLINICAL HISTORY: Fall, head injury. COMPARISON: HEAD W/O 11/21/2019 7:54 PM. TECHNIQUE: Multiaxial CT images were obtained from the foramen magnum to the vertex. Reformats: Sagittal and coronal. IV contrast: None. In accordance with CT protocol optimization, one or more of the following dose reduction techniques were utilized for this exam: automated exposure control, adjustment of mA and/or KV based on patient size, or use of iterative reconstructive technique. FINDINGS: Parenchyma: There is right frontal lobe encephalomalacia similar to the previous exam. No evidence of acute infarction or hemorrhage. Extraaxial Spaces: Normal for age. No subdural or epidural collections identified. Ventricles: Normal in size and position. Sinuses and Orbits: Imaged paranasal sinuses, orbits, and mastoids show no significant abnormality. Bones: No evidence of fracture or calvarial defect. Other: None. IMPRESSION: 1. No acute intracranial abnormality. 2. 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 RADIA
--- NOTE | 2020-01-15 19:21 | CT Report ---
Reason: fall, neck injury Procedure Date: 01/15/2020 Accession Number: [id number] / [id number] Procedure: CT - CERVICAL SPINE WO CPT Code: Final Report FULL RESULT: EXAM: CT CERVICAL SPINE WITHOUT CONTRAST DATE: 01/15/2020 06:40 PM. HISTORY: Fall, neck injury. COMPARISONS: HEAD W/O 11/21/2019 7:54 PM. TECHNIQUE: Thin-section axial images were acquired of the cervical spine without contrast. Post-processing: Coronal and sagittal reformats. Other: None. In accordance with CT protocol optimization, one or more of the following dose reduction techniques were utilized for this exam: automated exposure control, adjustment of mA and/or KV based on patient size, or use of iterative reconstructive technique. FINDINGS: Alignment: No scoliosis or spondylolisthesis. Bones: No fracture or bone lesion. Interspace Levels/Facets: C1-C2: Unremarkable. C2-C3: Significant facet hypertrophic change. No central or foraminal stenosis. C3-C4: Disk space height loss, marginal arthrosis. Severe left foraminal stenosis, very prominent left facet. Chronic finding. C4-C5: Disk space height loss, bilateral facet arthropathy, hypertrophic facets. Severe bilateral foraminal stenosis. C5-C6: Disk space height loss, hypertrophic facets, severe bilateral foraminal stenosis. C6-C7: Disk space height loss, hypertrophic facets and severe bilateral foraminal stenosis. C7-T1: Disk space height loss, hypertrophic facets. Mild bilateral foraminal stenosis. Musculature: Normal. No fatty atrophy. Other: The paravertebral and prevertebral soft tissues are unremarkable. The lung apices are clear. Opacification of the inferior left mastoid air cells. No erosive changes. Middle ear shows no mass. IMPRESSION: 1. No fractures. 2. Multilevel moderate to severe chronic degenerative changes. Severe foraminal stenosis at multiple levels as noted. RADIA
[2020-01-15 20:35] VITALS: BP 139/80
== END 2020-01-15 20:22 | disposition home or self-care (01) ==
LOC: EDUNIT# → ED 18:04
DX: S01.81XA Laceration without foreign body of other part of head, initial encounter (principal); W18.30XA Fall on same level, unspecified, initial encounter; Y92.129 Unspecified place in nursing home as the place of occurrence of the external cause; F03.90 Unspecified dementia, unspecified severity, without behavioral disturbance, psychotic disturbance, mood disturbance, and anxiety
CPT/HCPCS: 12013; 70450; 72125; 99281; 99284; A9270

== ENCOUNTER 2020-01-15 20:28 | Outpatient (CLI) | payer MEDICARE, MEDICAID | END 2020-01-15 20:29 | disposition home or self-care (01) | LOC: EMS 20:28 | PROVIDERS: ATTEND Surgery | DX: S01.81XA Laceration without foreign body of other part of head, initial encounter (principal); W19.XXXA Unspecified fall, initial encounter; Z74.01 Bed confinement status; F03.90 Unspecified dementia, unspecified severity, without behavioral disturbance, psychotic disturbance, mood disturbance, and anxiety | CPT/HCPCS: A0425; A0428 ==